=== PATIENT | female | born 1960 | race Caucasian/White ===

== ENCOUNTER 2018-11-02 11:31 | Inpatient (IN) ==
[2018-11-02] MEDS ORDERED: GAMUNEX C IV ONE (13:00)
[2018-11-02] MEDS ORDERED: DILUENT IV ONE (13:00)
[2018-11-02] MEDS ORDERED: GRANIX SUBQ ONE (15:10)
--- NOTE | 2018-11-02 15:31 | Diag Imaging Result Doc PS360 ---
EXAM: CHEST-PORTABLE INDICATION: pna TECHNIQUE: One view COMPARISON: 12/19/2013 FINDINGS: The right chest port is in stable position. The lungs are grossly clear. There is no discrete pleural fluid collection or pneumothorax. The cardiomediastinal silhouette and central vasculature are grossly unremarkable. IMPRESSION: No evidence of acute pathology by plain radiograph. Electronically signed by John Faulkner 11/02/2018 3:28 PM
[2018-11-02 15:51] LABS: BASO# 0.01 X1000 (0.0-0.2); BASO% 0.6 % (0.0-0.8); EOS# 0.19 X1000 (0.0-0.7); HEMATOCRIT 36.9 % (37.0-47.0); HEMOGLOBIN 12.2 g/dL (12.0-16.0); LYMPH# 0.49 X1000 (1.2-3.4); LYMPH% 28.3 % (20.5-51.1); MCH 29.5 PG (27-31); MCHC 33.1 g/dL (33-37); MCV 89.1 FL (81-99); MONO# 0.36 X1000 (0.11-0.59); MONO% 20.8 % (1.7-9.3); NEUT# 0.68 X1000 (1.4-6.5); NEUT% 39.3 % (42.2-75.2); PLT 56 X1000 (130-400); RBC 4.14 XMIL (4.2-5.4); WBC 1.73 X1000 (4.8-10.8)
[2018-11-02 16:01] LABS: AGAP 11; ALB/GLOB RATIO 1.2; ALBUMIN 3.7 g/dL (3.5-5.0); ALKALINE PHOSPHATASE 69 U/L (32-104); BUN 21 mg/dL (8-22); CALCIUM 9.5 mg/dL (8.8-10.2); CHLORIDE 97 mmol/L (98-107); CK PROFILE 140 U/L (24-173); COSMO 279; CREATININE 0.7 mg/dL (0.5-0.9); ESTIMATED GFR > 60; GLUCOSE 104 mg/dL (70-104); GOT 12 U/L (10-30); GPT 8 U/L (10-36); MAGNESIUM 1.8 mg/dL (1.5-2.7); POTASSIUM 3.5 mmol/L (3.5-5.1); SODIUM 138 mmol/L (136-145); TCO2 30 mmol/L (25-35); TOTAL BILIRUBIN 0.44 mg/dL (0.20-1.00); TOTAL PROTEIN 6.8 g/dL (6.3-8.3)
[2018-11-02 16:10] LABS: FREE T4 1.54 ng/dL (0.93-1.70); INR 0.96; PROTIME 13.6 Seconds (11.0-16.0); TSH 1.49 uIUmL (0.27-4.20)
[2018-11-02 16:37] LABS: BANDS 4 % (0-1); EOS 6 % (1-10); LYMPHS 33 % (21-51); MONO 10 % (1-9); SEGS 41 % (42-75)
[2018-11-02] MEDS ORDERED: DUONEB (A & A) INH PRN (17:29)
[2018-11-02] MEDS ORDERED: NS 1,000 ML IV ONE (17:30)
[2018-11-02] MEDS ORDERED: ZYVOX 600 MG/D5W 600 MG/300 ML IVPB IV SCH (18:30)
[2018-11-02] MEDS: MAXIPIME 2 GM in NS 100 ML IV SCH (19:52)
[2018-11-02] MEDS: DUONEB (A & A) INH SCH ×2 (20:00→23:40)
--- NOTE | 2018-11-02 20:08 | Diag Imaging Result Doc PS360 ---
EXAM: CT MAXILLOFACIAL(SINUS) W/O CO INDICATION: sinusitis TECHNIQUE: COMPARISON: None. FINDINGS: There is extensive paranasal sinus mucosal disease with subtotal opacification of the ethmoid sinuses, sphenoid sinuses, and right maxillary sinus. There is significant mucosal thickening involving the left maxillary sinus as well. The right frontal sinuses are not pneumatized. The small left frontal sinus is clear. Both ostiomeatal units are obstructed by the mucosal thickening. There appear to be air-fluid levels in the maxillary sinuses. The mastoid air cells are clear. The surrounding bony structures are grossly patent. IMPRESSION: Extensive paranasal sinusitis as described, likely a combination of acute and chronic. Electronically signed by John Faulkner 11/02/2018 8:06 PM
--- NOTE | 2018-11-02 20:17 | HISTORY AND PHYSICAL ---
ONCOLOGIST: Dr. John Diaz. CHIEF COMPLAINT: Fever, cough, malaise. HISTORY OF PRESENT ILLNESS: Ms. Germain is a 57-year-old female with a known history of multiple myeloma followed by Dr. Diaz. She has been having multiple days of wheezing, coughing, low-grade fever and malaise. She initially went to a walk-in clinic on Wednesday and was prescribed antibiotics; however, her symptoms did not improve. She had a followup with Dr. Diaz today for standard post-2-week chemotherapy labs. He listened to her lungs and felt she needed inpatient evaluation for probable pneumonia. She has also been complaining of some diarrhea, which is unusual for her. She has had about 4-8 stools a day. She denies any abdominal pain, however. Labs have been obtained, and she does have some leukopenia and thrombocytopenia. Otherwise, her chemistry is unremarkable. Chest x-ray is unremarkable as well; however, on physical exam she does have significant rales. Given the above, we will admit her for further treatment and evaluation. PAST MEDICAL HISTORY: 1. Multiple myeloma, followed by Dr. Diaz. 2. History of endometrial cancer status post hysterectomy. 3. Hypertension. SOCIAL HISTORY: No tobacco, alcohol or drug use. SURGICAL HISTORY: 1. Hysterectomy. 2. Port placement. FAMILY HISTORY: Noncontributory. REVIEW OF SYSTEMS: A 14-point review of systems was obtained and found to be negative with the exception of the HPI. HOME MEDICATIONS: 1. Metoprolol succinate 100 mg p.o. at bedtime. 2. Levaquin 500 mg daily. 3. She recently finished a study where she was on Eliquis, but this was completed last week. 4. She takes a baby aspirin daily. 5. Valacyclovir. ALLERGIES: Vancomycin. PHYSICAL EXAMINATION: VITAL SIGNS: Blood pressure 121/69, heart rate 88, respiratory rate 18, O2 saturation 93% on room air, temperature 97.5. GENERAL: Obese female lying in hospital bed in no acute distress. NEUROLOGICAL: Awake, alert and oriented. Follows commands. No focal deficits. HEENT: Head is atraumatic, normocephalic. Pupils equal, round, and reactive to light. Oral mucosa is dry. NECK: Trachea is midline. There is no JVD. CHEST: Bibasilar crackles and rales. CV: Regular rate and rhythm. S1 and S2 noted. No murmurs. GI: Soft, nondistended, nontender. Bowel sounds positive . EXTREMITIES: Without edema. Pulses 1+ bilaterally. DIAGNOSTIC DATA: Chest x-ray shows no evidence of acute pathology. WBCs 1.73, hemoglobin 12.2, hematocrit 36.9, platelet count 56. INR 0.96. Chemistry is unremarkable. ASSESSMENT/PLAN: 1. Presumed community-acquired pneumonia in the setting of altered immunity: Will start the patient on cefepime and Zyvox, check a thorax CT, add breathing treatments, aggressive pulmonary toilet, and follow culture data. 2. Diarrhea: Given her recent use of antibiotics, will check stool studies to ensure there is no Clostridium difficile or other pathologic growth. 3. Hypertension. Continue home medications. 4. Leukopenia and thrombocytopenia: Dr. Diaz is following and has added Granix subcutaneously. Will follow her CBC daily. 5. Multiple myeloma. Aware. Dr. Diaz is managing. 6. Deep venous thrombosis prophylaxis with sequential compression devices and thromboembolic deterrents. 7. Further recommendations to follow. Dictated by JUANA Park for Gavino Nascimento MD cc: JUANA Park MD I have seen and examined Ms Germain today. She presented cough, nasal congestion and subjective fever I have reviewed her labs and imaging studies. She is immunocompromised, Multiple myeloma, neutropenic fever and pneumonia. I agree with the above HPI and the plan reflects my opinion discussed with the MEDICAL NUMERICAL CONTROL OPERATOR. EVE
--- NOTE | 2018-11-02 20:17 | Diag Imaging Result Doc PS360 ---
EXAM: CT THORAX W/O CONTRAST INDICATION: pna TECHNIQUE: This exam was performed using automated exposure control, adjustment of mA or kV according to patient size, and/or use of iterative reconstruction technique. COMPARISON: 05/07/2018 FINDINGS: There are patchy airspace infiltrates involving all of the pulmonary lobes bilaterally but more extensive at the lower lung zones, especially on the left. There is no pleural fluid collection and no pneumothorax. There are small shotty mediastinal and hilar lymph nodes that are similar to the previous study. No new lymphadenopathy is appreciated. There is no cardiomegaly. There are innumerable lytic lesions throughout the visualized skeleton similar to the previous study consistent with known multiple myeloma. IMPRESSION: 1.Multilobar patchy pneumonia bilaterally. 2.Innumerable lytic lesions throughout the visualized skeleton similar to the previous study consistent with known multiple myeloma. Electronically signed by John Faulkner 11/02/2018 8:14 PM
[2018-11-02] MEDS: TYLENOL PO PRN (21:30)
[2018-11-02] MEDS: TOPROL XL PO SCH (21:30)
[2018-11-02] MEDS: CIPRODEX OTIC SUSPENSION SCH (21:32)
[2018-11-03] MEDS: DUONEB (A & A) INH SCH ×6 (03:20→23:35)
--- NOTE | 2018-11-03 04:01 | INFECTIOUS DISEASE CONSULT REP ---
DATE: 11/02/2018 CONCLUSION: The patient was admitted to the hospital, she has neutropenia. On exam she appears to have both otitis externa and otitis media. She also may have sinusitis. The patient has diarrhea and this could be due to an infectious cause such as Clostridium difficile. The patient may have a pneumonia that does not yet show up on x-ray due to the fact that the patient is neutropenic and also the chest x-ray often times lags behind the clinical nature of the patient, and thus she could have pneumonia but it is not showing up yet on the chest x-ray. RECOMMENDATIONS: I agree with treating the patient with cefepime. I have discontinued Zyvox because of the patient's low white count. I have also ordered Cipro ear drops and I have ordered a CT scan of the sinuses. DISCUSSION: The patient tells me that for the past 4 days she has had a cough and some shortness of breath, she also has had fever. She produces sputum that had both yellow discoloration and blood in it. Laboratory studies thus far show a CBC with a white count of 1730, hemoglobin 12.2, platelet count 56,000 creatinine is 0.7. GFR is greater than 60. Liver function studies are normal. Blood cultures are pending. Chest x-ray is clear. The patient has had cough and shortness of breath for 4 days. She also has had fever. She has been producing sputum that is yellow and also has blood in it. She has also been complaining of diarrhea. The patient is having some chest pain but it is mainly pleuritic in nature. FIRER DIESEL LOCOMOTIVE HISTORY: She is a 3, para 3, AB0. She has had a hysterectomy. PAST MEDICAL HISTORY/REVIEW OF SYSTEMS: Eyes/Ears: The patient has decreased hearing. Her vision is okay. Neck: No stiffness. Respiratory: See present illness. Cardiac: The patient does have chest pain but it is pleuritic in nature. Genitourinary: No dysuria or flank pain. Gastrointestinal: See present illness. Bones/Joints/Muscles: No swollen joints or muscle aching. PREVIOUS HOSPITALIZATIONS/OPERATIONS: She has had 3 labor and deliveries, a hysterectomy, an admission for pneumonia. She has had 2 stem-cell transplants for multiple myeloma. She has had 2 spinal procedures, 1 of which was a kyphoplasty. MEDICAL DISEASES: Positive for hypertension, multiple myeloma, and low immunoglobulin levels. INFECTIOUS DISEASE HISTORY: Positive for pneumonia, urinary tract infection, and shingles. A bladder infection caused the patient to have loss of hearing. FAMILY HISTORY: Positive for cancer and parkinsonism. SOCIAL HISTORY: The patient lives in [place]. She is . She has a dog as a pet. She does not smoke cigarettes, drink alcoholic beverages, or abuse drugs. PHYSICAL EXAMINATION: Vital Signs: Temperature is 97.5 degrees, pulse 88, respirations 18, blood pressure 121/69. The patient is 4 feet 11 inches tall, weighs 204 pounds. General: This is an obese middle-aged female. She is in no acute distress. Head/eyes/ears/nose/throat: She can hear my spoken words and see near objects. Her sinuses were not tender. On otoscopic examination the patient had some erythema on both of her ear canals, and on the left ear there was erythema on the tympanic membrane. Neck: No meningismus. Lungs: Clear to auscultation. Cardiovascular: Heart rate is regular. Abdomen: Soft and nontender. Neurologic: The patient is alert. She can move her extremities. There is no tremor. Her sensation is intact to touch. Integument: No rash noted. Thank you for the consult. cc: Mekhi Markham MD
[2018-11-03] MEDS: MAXIPIME 2 GM in NS 100 ML IV SCH (04:59)
[2018-11-03 06:59] LABS: BASO# 0.01 X1000 (0.0-0.2); BASO% 0.5 % (0.0-0.8); EOS% 4.8 % (0.0-10.0); HEMATOCRIT 32.4 % (37.0-47.0); HEMOGLOBIN 10.6 g/dL (12.0-16.0); IMM GRAN% 4.8 % (0.0-0.5); LYMPH# 0.52 X1000 (1.2-3.4); LYMPH% 24.8 % (20.5-51.1); MCH 29.4 PG (27-31); MCHC 32.7 g/dL (33-37); MCV 89.8 FL (81-99); MONO# 0.52 X1000 (0.11-0.59); MONO% 24.8 % (1.7-9.3); MPV 11.9 FL (7.4-10.4); NEUT# 0.85 X1000 (1.4-6.5); NEUT% 40.3 % (42.2-75.2); PLT 50 X1000 (130-400); RBC 3.61 XMIL (4.2-5.4); RDW 13.2 % (11.5-14.5)
[2018-11-03 07:25] LABS: LYMPHS 24 % (21-51); MONO 38 % (1-9); SEGS 38 % (42-75)
[2018-11-03] MEDS: TYLENOL PO PRN ×2 (08:20→21:34)
[2018-11-03] MEDS: CIPRODEX OTIC SUSPENSION SCH ×2 (08:21→21:36)
[2018-11-03 08:45] LABS: IRON SATURATION 25 %; TIBC 202 ug/dL; TOTAL IRON 50 ug/dL (49-151); UNBOUND IRON 152 ug/dL (112-346)
--- NOTE | 2018-11-03 08:48 | HEMO/ONC CONSULTATION ---
DATE: 11/03/2018 CHIEF COMPLAINT: We are being consulted for the management of patient's multiple myeloma. HISTORY OF PRESENT ILLNESS: Ms. Germain is a pleasant 57-year-old female that has been complaining of approximately 4 to 5 days of increased shortness of breath, wheezing, coughing, low-grade fever, malaise. The patient did go to a walk-in clinic on Wednesday, where she was given some antibiotics and symptoms continued to get worse. The patient followed up in the clinic yesterday with increasing complaints, and was sent to the hospital at that time to be admitted for further evaluation and treatment for pneumonia. The patient has also been having some increasing diarrhea. Patient denied any nausea and vomiting. No abdominal pain. No clinical signs of bleeding. The patient is well known to us in clinic, where she follows up for multiple myeloma. In August 12, 2012, the patient was started on Doxil, Velcade, and Decadron, and completed in November 21, 2012. Was followed up on January 16, 2013, she had an autologous stem-cell transplantation and then on 06/27/2013, the patient had a tandem autotransplant, and Revlimid was stopped at that time. On 02/28/2014, patient was started on maintenance Velcade and then 2 years later, in 01/15/2015, Velcade was stopped. On 02/04/2015 due to progression of disease, patient was started on Cytoxan, Velcade, and Decadron. The patient was switched to Darzalex on 09/27/2017. Pomalyst was added on 04/26/2018 due to an M spike of 1.1 g/dL. The patient also has a history of hypogammaglobulinemia, where she was receiving Octagam every 4 weeks and due to her IgG levels increasing, it was stopped, which she received her last dose on February 02, 2017. PAST MEDICAL HISTORY: 1. Multiple myeloma. 2. History of endometrial cancer status post hysterectomy. 3. Hypertension. 4. Stem cell transplant x2. SURGICAL HISTORY: Hysterectomy and port placement. SOCIAL HISTORY: Denies any tobacco, alcohol, or illicit drug use. FAMILY HISTORY: Noncontributory. HOME MEDICATIONS: Metoprolol succinate, Levaquin, Valaciclovir, aspirin 81 mg. ALLERGIES: Vancomycin. REVIEW OF SYSTEMS: Negative, other than as mentioned in HPI. PHYSICAL EXAM: Vital Signs: Temperature 97.5 degrees, heart rate 79, respiratory rate 19, blood pressure is 112/45, saturation 98% on room air. General: Patient is awake, lying in bed, in no acute distress noted. HEENT: Anicteric. Pupils PERRLA. Mucous membranes moist. Neck: Supple. Trachea is midline. No JVD. Lymph node survey: No palpable lymphadenopathy. Chest: Bilateral breath sounds with crackles bilaterally with an expiratory wheeze. Cardiovascular: Normal S1, S2. Regular rate and rhythm. Abdomen: Soft, nontender, and nondistended. Bowel sounds present all 4 quadrants. Skin: Warm, dry, and intact. No petechiae. No clubbing, no rashes, no cyanosis. Neurologic: Alert and oriented x3. No focal deficits noted. LABORATORY DATA: White blood cell count is 2.1, hemoglobin 10.6, hematocrit 32.4, platelets are 50. Potassium 3.5, BUN 21, creatinine 0.7. RADIOLOGY RESULTS: Chest CT showed multilevel for patchy pneumonia bilaterally and there were lytic lesions throughout the visualized skeleton similar to previous study, consistent with her known multiple myeloma. Maxillofacial CT shows extensive paranasal sinusitis as likely a combination of acute on chronic. ASSESSMENT AND PLAN: 1. Multiple myeloma. The patient currently on Darzalex and Pomalyst, 3 weeks on and 1 week off. Her last dose of Pomalyst was on 10/18/2018, as well as the last Darzalex. The patient is also on Xgeva, where she receives it every 28 weeks, and her last dose was on 10/18/2018. Continue to monitor at this time. Once patient is discharged and back to baseline, we will consider restarting treatment at that time. 2. Pneumonia: Continue antibiotics as ordered by Infectious Disease. Continue with breathing treatments as ordered. Continue to monitor. 3. Leukopenia: White blood cell count did slightly increased after receiving 1 dose of Granix yesterday. Today, white blood cell count was 3.1. ANC is up to 850. The patient will receive another dose of Granix today. 4. Thrombocytopenia. Today, platelet counts are 50,000, this is caused by bone marrow suppression with her treatment and infectious process. Continue to monitor closely. Transfuse if platelets drop less than 20,000 or for any clinical signs of bleeding. Continue to monitor closely. 5. Anemia: This is caused by her immune bone marrow suppression from her chemotherapy as well as her infectious process at this time. We will get an anemia profile as well just to check. Continue to monitor closely. Transfuse as needed. 6. Deep venous thrombosis prophylaxis: Continue sequential compression device. Continue patient to get up as much as possible. 7. Diarrhea: Negative for Clostridium difficile. Most likely caused by her Darzalex and Pomalyst. Continue to monitor. 8. Hypertension. Continue home medications as ordered. Dictated by JUANA Overton for John Diaz MD Patient seen and examined. As above. For the time being we will hold Pomalyst. Continue antibiotics for pneumonia. We will give a dose of IVIG due to hypogammaglobulinemia. Cytopenia due to chemotherapy. Support with Neupogen until ANC greater than 1000. Transfuse as needed. Compression stockings and SCDs for DVT prophylaxis. Lovenox once her platelet started trend up. Discussed with . John Diaz M.D. cc: JUANA Overton MD [facility]
[2018-11-03 09:04] LABS: FERRITIN 334 ng/mL (13-150)
[2018-11-03] MEDS ORDERED: GRANIX SUBQ SCH (09:30)
--- NOTE | 2018-11-03 11:09 | PROGRESS NOTE ---
DATE: 11/03/2018 SUBJECTIVE: This morning Ms. Germain refers to be doing fairly okay, but she says she is feeling very stuffy in the nose and slightly sweaty. Unsure if she is running any temperature. However, this morning her temperature was normal. OBJECTIVE: Vital signs: Blood pressure is 112/45, pulse is 79, respirations 19 and temperature 97.5 degrees. The patient was saturating 98 on room air. General exam: Ms. Germain is 57-year- old female. She was sitting up in the bed. She was not in any cardiopulmonary distress. HEENT: Mucosa is pink and moist. Anicteric. Acyanotic. Neck: Supple. I did not see any JVD. Respiratory system: Air entry was bilaterally reduced. There are diffuse posterior crepitations and inspiration. Abdomen: Soft, nontender. Bowel sounds present. Extremities: No pedal edema. WINDOW SHADE INSTALLER: Patient is awake, alert, oriented. There is no focal neurological deficit. LABORATORY DATA: WBC is 2.10, hemoglobin is 10.6, platelet count of 50. Chemistry is also reviewed. DIAGNOSTIC STUDIES: A chest x-ray which was done yesterday shows no evidence of acute pathology. A CT did show multilobar patchy pneumonia bilateral. There are also innumerable lytic lesions throughout the visualized skeletals. A CT of the maxillary facial showed extensive paranasal sinusitis, likely combination of acute and chronic. CURRENT MEDICATIONS: The patient's current medications have also been reviewed. She is on cefepime 2 g q. 12 hours. She is also getting Cipro. HOME MEDICATIONS: Home medications include: 1. Metoprolol 100 mg daily. ASSESSMENT: 1. Neutropenic fever at home, stable. So far, blood cultures have not shown anything. We think the source is coming from the lungs and the sinuses. The patient's white cell count seems to go up. Absolute neutrophil count has improved from 778 yesterday to 798. The patient continues to be remarkably neutropenic. 2. Pansinusitis. We will continue with the current antibiotic coverage and have added Zyrtec for decongestion purposes. 3. Multilobar pneumonia. The patient is currently on cefepime. I think she would benefit from methicillin-resistant Staphylococcus aureus coverage. I will wait on Infectious Disease to evaluate her today and then make a decision in that regard. 4. History of multiple myeloma. Patient follows up with Dr. Diaz. She is currently on monthly Darzalex and oral Pomalyst. 5. Immunocompromised secondary to underlying malignancy and chemotherapy. The patient has been has been infused immunoglobulin. PLAN: So, in general, Ms. Germain is a complicated case of multiple myeloma, who has had at least 2 bone marrow transplants. She is currently on immunotherapy with Dr. Diaz, who presented because of neutropenic fever. Sources seems to be both pansinusitis and pneumonia. The patient is currently on antibiotics. Cultures are still pending, but she seems to be fairly stable. I have discussed this case with Dr. Diaz and her oncologist today. cc: Gavino Nascimento MD
--- NOTE | 2018-11-03 11:32 | INFECTIOUS DISEASE PROGRESS NO ---
DATE: 11/03/2018 PRESENT ILLNESS: Ms. Germain has bilateral multilobar pneumonia, acute on chronic extensive paranasal sinusitis, and pancytopenia related to multiple myeloma. The patient has a history of immunoglobulin deficiency. MEDICATIONS: She is on day 1 of cefepime 2 g IV every 12 hours and Cipro otic suspension twice daily. The patient has received a dose of IVIG yesterday. PHYSICAL EXAMINATION: Vital Signs: Temperature is 97.5 degrees, pulse rate 83 , respiratory rate 20, blood pressure 112/45, O2 saturation is 93% on room air. General: This is a fairly healthy- appearing, middle-aged female. She is standing at the bedside in no acute distress. HEENT: Atraumatic, normocephalic. Oral mucous membranes are pink and moist. Conjunctivae are pale. Neck: Supple. Trachea is midline. Cardiovascular: Heart rate is regular. Pedal and radial pulses are palpable bilaterally. Lower extremity edema noted. Respiratory: Lung sounds have scattered rales bilaterally. Abdomen: Soft, round, and nontender. Bowel sounds are active. She states her diarrhea is improving. Integumentary: Skin is warm, dry and intact. Neurologic: She is awake, alert, and oriented. Stable on her feet. LABORATORY AND X-RAY: Today her white count is 2.1, hemoglobin 10.6, platelet count 50,000. Absolute neutrophil count is 850. Blood cultures are pending. Stool for C difficile toxin and antigen were both negative. No imaging reports today. However, the maxillofacial CT scan done last night shows extensive paranasal sinusitis, likely a combination of acute and chronic. Chest CT last night showed multilobar, patchy pneumonia bilaterally. ASSESSMENT AND PLAN: Ms. Germain has multilobar pneumonia bilaterally and extensive paranasal sinusitis. There is also an underlying pancytopenia. At this point, we will discontinue her cefepime and start her on aztreonam 2 g IV every 8 hours and ceftaroline 600 mg IV every 12 hours. She is also complaining of nasal stuffiness requiring her to mouth breathe. We will start her on Flonase nasal spray twice a day. These plans have been discussed with and recommended by Dr. Markham. COMORBIDITIES: Comorbidities for Ms. Germain include multiple myeloma and history of low immunoglobulin levels. Dictated by JUANA Kilpatrick for Mekhi Markham MD This chart was documented by, JUANA Kilpatrick and accurately reflects the services performed, treatment plan and medical decisions as attested by the providers signature Mekhi Markham MD. cc: Mekhi Markham MD [facility]
[2018-11-03] MEDS: FLONASE NAS SCH (11:49)
[2018-11-03] MEDS: ZYRTEC PO SCH (11:49)
[2018-11-03] MEDS: AZACTAM 2 GM in NS 100 ML IV SCH ×2 (11:57→21:45)
[2018-11-03] MEDS: TEFLARO 600 MG in NS 250 ML IV SCH (12:56)
[2018-11-03] MEDS: TOPROL XL PO SCH (21:33)
[2018-11-04] MEDS: TEFLARO 600 MG in NS 250 ML IV SCH ×2 (01:45→13:39)
[2018-11-04] MEDS: FLONASE NAS SCH ×3 (01:52→20:04)
[2018-11-04] MEDS: DUONEB (A & A) INH SCH ×6 (03:55→23:54)
[2018-11-04] MEDS: AZACTAM 2 GM in NS 100 ML IV SCH ×3 (04:07→20:04)
[2018-11-04 07:14] LABS: BASO# 0.03 X1000 (0.0-0.2); BASO% 1.4 % (0.0-0.8); EOS# 0.13 X1000 (0.0-0.7); EOS% 5.9 % (0.0-10.0); HEMATOCRIT 31.9 % (37.0-47.0); HEMOGLOBIN 10.4 g/dL (12.0-16.0); IMM GRAN# 0.31 X1000 (0.0-0.04); IMM GRAN% 14.2 % (0.0-0.5); LYMPH# 0.55 X1000 (1.2-3.4); LYMPH% 25.1 % (20.5-51.1); MCH 29.2 PG (27-31); MCHC 32.6 g/dL (33-37); MCV 89.6 FL (81-99); MONO# 0.59 X1000 (0.11-0.59); MONO% 26.9 % (1.7-9.3); MPV 10.9 FL (7.4-10.4); NEUT# 0.58 X1000 (1.4-6.5); NEUT% 26.5 % (42.2-75.2); PLT 59 X1000 (130-400); RBC 3.56 XMIL (4.2-5.4); RDW 13.1 % (11.5-14.5); WBC 2.19 X1000 (4.8-10.8)
[2018-11-04 07:36] LABS: EOS 16 % (1-10); LYMPHS 32 % (21-51); MONO 16 % (1-9); SEGS 36 % (42-75)
[2018-11-04 07:43] LABS: AGAP 12; BUN 6 mg/dL (8-22); CALCIUM 8.3 mg/dL (8.8-10.2); CHLORIDE 105 mmol/L (98-107); COSMO 284; CREATININE 0.5 mg/dL (0.5-0.9); ESTIMATED GFR > 60; GLUCOSE 84 mg/dL (70-104); POTASSIUM 3.3 mmol/L (3.5-5.1); SODIUM 144 mmol/L (136-145); TCO2 27 mmol/L (25-35)
--- NOTE | 2018-11-04 08:21 | HEMO/ONC PROGRESS NOTE ---
DATE: 11/04/2018 SUBJECTIVE: Patient's shortness of breath continues to improve. The patient says overall she is slowly starting to feel better. OBJECTIVE: Vital Signs: Temperature 97.4 degrees, heart rate 72, respiratory rate 20, blood pressure is 141/48, satting 94% on room air. General: Patient is awake, lying in bed, no acute distress noted. HEENT: Anicteric pupils. PERRLA. Mucous membranes moist. Cardiovascular: Normal S1, S2. Regular rate and rhythm. Chest: Bilateral breath sounds with crackles bilaterally. Abdomen: Soft, nontender. Bowel sounds present all 4 quadrants. Neurologic: Alert and oriented x3. No focal deficits noted. LABORATORY DATA: White blood cell count is 2.19, hemoglobin 10.4, hematocrit of 31.9, platelets are 59. ANC is 580. Potassium 3.3. BUN 6, creatinine 0.5, calcium 8.3. ASSESSMENT AND PLAN: 1. Multiple myeloma: The patient is on Pomalyst and Darzalex with the last dose on 10/18/2018. Once patient was discharged back to baseline, we will restart treatment. Just continue to monitor at this time. 2. Pneumonia: Continue antibiotics as ordered by Infectious Disease. Continue with breathing treatments as ordered. 3. Leukopenia: White blood cell count continues to be low. The patient will continue to receive the Granix until Her ANC is greater than 1500. Continue to monitor closely. 4. Thrombocytopenia: Platelet count is slowly increasing; today they are 259, 000. Continue to monitor. Transfuse if platelets drop less than 20,000 for any clinical signs of bleeding. 5. Hypogammaglobinemia: Patient received IVIG on Wednesday. Continue to monitor. 5. Deep venous thrombosis prophylaxis: Continue sequential compression devices : Continue the patient to get out of bed as much as possible. Plan of care discussed with Dr. Diaz. Dictated by JUANA Overton for John Diaz MD cc: John Diaz MD [facility]
[2018-11-04] MEDS: ZYRTEC PO SCH (09:02)
[2018-11-04] MEDS: CIPRODEX OTIC SUSPENSION SCH ×2 (09:02→20:05)
--- NOTE | 2018-11-04 18:01 | PROGRESS NOTE ---
DATE: 11/04/2018 SUBJECTIVE: This morning, Ms. Germain refers to be doing a lot better. She was actually sitting up in a chair at the time of the encounter. OBJECTIVE: Vital signs: Blood pressure was 115/54, pulse of 75, respirations 20, temperature 98 degrees. General: Ms. Germain is a 57-year-old gender lady. She was sitting up in a chair. No distress, HEENT: Mucosa is pink and moist. Anicteric. Acyanotic. Neck: Supple. Chest: Good air entry bilateral. There are still some crepitations posteriorly in both lung morton. Cardiovascular: Regular rate and rhythm. No murmurs, no rubs, no gallops. Abdomen: Soft, nontender. Bowel sounds present. Extremities: No pedal edema. Central Nervous System: The patient was awake, alert, oriented. No focal neurological deficit. LABORATORY DATA: WBC is 2.19, hemoglobin is 10.4, platelet count of 59,000. ANC is 788.4. Chemistry is also reviewed and is unremarkable. No new imaging studies. ASSESSMENT: 1. Neutropenic fever at home. So far cultures have been negative including blood for 48 hours. 2. Pansinusitis. Patient is on antibiotic and Zyrtec. 3. Multilobar pneumonia. The patient is currently on aztreonam and ceftaroline. Infectious Disease is on board. 4. History of multiple myeloma. Patient follows up with Dr. Diaz. Currently on monthly dose of Darzalex and daily oral Pomalyst. 5. Immunocompromised state secondary to underlying malignancy and chemotherapy. The patient received immunoglobulin infusion. In general, I think Ms. Germain is doing fairly okay. ANC continues to be below 1000. She is still pancytopenic. We are going to continue with the current antibiotics and care and follow up with further recommendation from the subspecialties. cc: Gavino Nascimento MD
[2018-11-04] MEDS: TYLENOL PO PRN (20:05)
[2018-11-04] MEDS: TOPROL XL PO SCH (20:05)
--- NOTE | 2018-11-04 22:23 | INFECTIOUS DISEASE PROGRESS NO ---
DATE: 11/04/2018 PRESENT ILLNESS: The patient has bilateral multilobar pneumonia, extensive paranasal sinusitis, otitis media, and otitis externa. The patient also has history of an immunoglobulin deficiency. MEDICATIONS: The patient is on a combination of ceftaroline and aztreonam. PHYSICAL EXAMINATION: Vital Signs: Temperature is 98 degrees, pulse 75, respirations 20, blood pressure 115/54. General: This is an obese, middle-aged female. She is in no acute distress. Head, eyes, ears, nose, and throat: She can hear my spoken words and see near objects. She does not have any white patches on her tongue, and there are no ulcers in her mouth. Neck: No meningismus. Lungs: There were bibasilar rales. Cardiovascular: Heart rate is regular. Abdomen: Soft and nontender. Extremities: Both legs are edematous but not erythematous. Neurologic: The patient is alert. She can move her extremities. There is no tremor. LABORATORY AND X-RAY: CT scan of the sinuses showed extensive paranasal sinusitis. CT scan of the chest showed bilateral pneumonia. The CBC for today shows a white count of 2190, hemoglobin 10.4, and platelet count 59,000. Creatinine is 0.5, GFR is greater than 60. Stool for ova and parasites, culture and susceptibility, and Clostridium difficile antigen and toxin are all negative. ASSESSMENT AND PLAN: The patient has pancytopenia with an associated pneumonia and sinusitis as well as otitis media and otitis externa. My plan is to continue with aztreonam and ceftaroline. COMORBIDITIES: The patient has multiple myeloma. She also has a history of low immunoglobulin levels. Finally, she is pancytopenic. cc: Mekhi Markham MD
[2018-11-05] MEDS: TEFLARO 600 MG in NS 250 ML IV SCH ×2 (01:12→12:58)
[2018-11-05] MEDS: AZACTAM 2 GM in NS 100 ML IV SCH ×3 (03:15→20:09)
[2018-11-05] MEDS: DUONEB (A & A) INH SCH ×6 (04:30→23:22)
[2018-11-05 07:06] LABS: AGAP 8; BUN 6 mg/dL (8-22); CHLORIDE 104 mmol/L (98-107); COSMO 278; CREATININE 0.5 mg/dL (0.5-0.9); ESTIMATED GFR > 60; GLUCOSE 90 mg/dL (70-104); SODIUM 141 mmol/L (136-145); TCO2 29 mmol/L (25-35)
[2018-11-05 07:17] LABS: BASO# 0.05 X1000 (0.0-0.2); BASO% 1.9 % (0.0-0.8); EOS# 0.16 X1000 (0.0-0.7); HEMATOCRIT 31.2 % (37.0-47.0); HEMOGLOBIN 10.4 g/dL (12.0-16.0); IMM GRAN# 0.03 X1000 (0.0-0.04); IMM GRAN% 1.1 % (0.0-0.5); LYMPH# 0.69 X1000 (1.2-3.4); MCHC 33.3 g/dL (33-37); MCV 89.9 FL (81-99); MONO# 0.63 X1000 (0.11-0.59); MONO% 23.8 % (1.7-9.3); MPV 10.2 FL (7.4-10.4); NEUT# 1.09 X1000 (1.4-6.5); NEUT% 41.2 % (42.2-75.2); PLT 70 X1000 (130-400); RBC 3.47 XMIL (4.2-5.4); RDW 13.4 % (11.5-14.5); WBC 2.65 X1000 (4.8-10.8)
[2018-11-05 07:28] LABS: BASO 8 % (0-1); EOS 6 % (1-10); LYMPHS 36 % (21-51); MONO 16 % (1-9); SEGS 34 % (42-75)
[2018-11-05] MEDS: ZYRTEC PO SCH (11:37)
[2018-11-05] MEDS: CIPRODEX OTIC SUSPENSION SCH ×2 (11:38→20:10)
[2018-11-05] MEDS: FLONASE NAS SCH ×2 (11:38→20:10)
[2018-11-05] MEDS: GRANIX SUBQ SCH (11:39)
--- NOTE | 2018-11-05 15:29 | PROGRESS NOTE ---
DATE: 11/05/2018 SUBJECTIVE: This morning Ms. Germain refers to be doing fairly okay. Still has some residual cough, but she said her congestion for most part is remarkably improved. OBJECTIVE: Vital Signs: Blood pressure is 138/72, pulse is 72, respirations 20 , temperature 97.8. General: Ms. Germain is a 57-year-old female. She is in bed, no distress. HEENT: Mucosa is pink and moist. Anicteric. Acyanotic. Neck: Supple. Respiratory: Good air entry bilaterally. There are still crepitations posteriorly in both lungs. Cardiovascular: Regular rate and rhythm. No murmurs, no rubs, no gallops. Gastrointestinal: Abdomen is soft, nontender. Bowel sounds present. Extremities: No pedal edema. Distal pulses are present. Central Nervous System: Patient is awake, alert and oriented. There is no focal neurological deficit. LABORATORY DATA: WBC is 2.65, hemoglobin is 10.4, platelet count of 70,000. The patient's ANC is 901. Chemistry is also reviewed. Potassium is 3.0. Rest of chemistry is unremarkable. ASSESSMENT: 1. Neutropenic fever at home. Culture so far negative. 2. Pansinusitis. Patient is currently on ceftaroline and aztreonam and Zyrtec. 3. Multilobe pneumonia. We will continue with the current antibiotic coverage. Infectious Disease is on board. 4. History of multiple myeloma. Patient follows up with Dr. Diaz. The patient is currently on monthly dose of Darzalex and daily oral Pomalyst These have been withheld during the acute illness. 5. Immunocompromised state secondary to underlying malignancy and chemotherapy. 6. Diarrhea. I think this is probably due to the side effects of the current antibiotics. We will, however, do a C difficile to rule out any possible superimposed infection. cc: Gavino Nascimento MD MTDD
[2018-11-05] MEDS: TYLENOL PO PRN (20:09)
[2018-11-05] MEDS: TOPROL XL PO SCH (20:09)
[2018-11-06] MEDS: TEFLARO 600 MG in NS 250 ML IV SCH ×2 (01:08→12:59)
[2018-11-06] MEDS: DUONEB (A & A) INH SCH ×6 (03:20→23:01)
[2018-11-06] MEDS: AZACTAM 2 GM in NS 100 ML IV SCH ×3 (03:36→22:05)
[2018-11-06] MEDS: TYLENOL PO PRN ×2 (06:44→19:57)
[2018-11-06 07:37] LABS: AGAP 9; BUN 5 mg/dL (8-22); CALCIUM 7.7 mg/dL (8.8-10.2); CHLORIDE 105 mmol/L (98-107); COSMO 282; CREATININE 0.6 mg/dL (0.5-0.9); ESTIMATED GFR > 60; GLUCOSE 88 mg/dL (70-104); POTASSIUM 3.2 mmol/L (3.5-5.1); SODIUM 143 mmol/L (136-145); TCO2 29 mmol/L (25-35)
[2018-11-06] MEDS: GRANIX SUBQ SCH (11:10)
[2018-11-06] MEDS: FLONASE NAS SCH ×2 (11:12→22:06)
[2018-11-06] MEDS: CIPRODEX OTIC SUSPENSION SCH ×2 (11:14→22:06)
[2018-11-06] MEDS: ZYRTEC PO SCH (11:15)
--- NOTE | 2018-11-06 14:33 | PROGRESS NOTE ---
DATE: 11/06/2018 SUBJECTIVE: This morning Ms. Germain refers to be doing fairly okay. Denies any fever and no shortness of breath. She still has some nasal congestion and baseline cough but no expectoration. OBJECTIVE: Vitals: Her blood pressure is 133/77, pulse is 71, respiration is 20, temperature 98 degrees, patient was saturating 98% on room air. General: Ms. Germain 57-year- old female she was in bed no distress. Mucosa is pink and moist. Anicteric. Acyanotic. Neck: Supple. Respiratory: There is good air entry bilateral. There are still some posterior crackles in the inferior lung morton. Cardiovascular: Regular rate and rhythm. No murmurs, no rubs, no gallop. Abdomen: Soft, nontender. Bowel sounds present. Extremities: No pedal edema. Distal pulses present. 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 No focal neurological deficit. LABORATORY DATA: Chemistry is reviewed. Potassium is 3.2, will continue to replace this . So far the blood cultures have been 48 hours negative. Stool cultures have all been negative. CURRENT MEDICATIONS: Have also been reviewed. She is on aztreonam 2 g every 8 hours today is day 3 on that, ceftaroline 600 q.12 today is day 3. ASSESSMENT: 1. Neutropenic fever. Cultures negative so far. Numbers are getting slowly better. 2.Pansinusitis. Patient is on Zyrtec and IV antibiotics. 3. Multilobar pneumonia. Will continue with aztreonam and ceftaroline. Infectious Disease is on board. 4. History of multiple myeloma. Patient follows up with Dr. Diaz. He is currently on monthly dose of Darzalex and daily oral Pulmo-Mist. 5. Immunocompromised state secondary to underlying malignancy and chemotherapy. 6. Diarrhea improved, so far stool cultures have been negative. We think is probably related to chemotherapy side effects. So in general Ms. Germain is doing fairly okay. Respiratory symptoms are getting better. We going to continue with the current antibiotic coverage. We will repeat her labs for tomorrow morning and go from there. She has been afebrile since the hospital course. cc: MD EVE Crain
[2018-11-06] MEDS: TOPROL XL PO SCH (22:06)
[2018-11-06] MEDS ORDERED: NORCO-5 PO PRN (23:27)
[2018-11-07] MEDS: TEFLARO 600 MG in NS 250 ML IV SCH (01:01)
[2018-11-07] MEDS: DUONEB (A & A) INH SCH ×3 (02:47→11:37)
[2018-11-07] MEDS: AZACTAM 2 GM in NS 100 ML IV SCH (05:47)
[2018-11-07 06:48] LABS: BASO# 0.25 X1000 (0.0-0.2); BASO% 2.2 % (0.0-0.8); EOS# 0.24 X1000 (0.0-0.7); EOS% 2.2 % (0.0-10.0); HEMATOCRIT 33.2 % (37.0-47.0); HEMOGLOBIN 10.7 g/dL (12.0-16.0); IMM GRAN% 9.9 % (0.0-0.5); LYMPH# 1.29 X1000 (1.2-3.4); LYMPH% 11.6 % (20.5-51.1); MCH 29.2 PG (27-31); MCHC 32.2 g/dL (33-37); MCV 90.7 FL (81-99); MONO# 2.22 X1000 (0.11-0.59); MONO% 19.9 % (1.7-9.3); MPV 10.5 FL (7.4-10.4); NEUT# 6.06 X1000 (1.4-6.5); NEUT% 54.2 % (42.2-75.2); PLT 95 X1000 (130-400); RBC 3.66 XMIL (4.2-5.4); WBC 11.16 X1000 (4.8-10.8)
[2018-11-07 07:01] LABS: BANDS 4 % (0-1); BASO 6 % (0-1); EOS 2 % (1-10); LYMPHS 18 % (21-51); MONO 22 % (1-9); SEGS 48 % (42-75)
[2018-11-07 07:32] LABS: AGAP 10; BUN 7 mg/dL (8-22); CALCIUM 8.3 mg/dL (8.8-10.2); CHLORIDE 106 mmol/L (98-107); COSMO 285; CREATININE 0.6 mg/dL (0.5-0.9); ESTIMATED GFR > 60; GLUCOSE 95 mg/dL (70-104); POTASSIUM 3.3 mmol/L (3.5-5.1); SODIUM 144 mmol/L (136-145); TCO2 28 mmol/L (25-35)
[2018-11-07] MEDS: FLONASE NAS SCH (09:45)
[2018-11-07] MEDS: ZYRTEC PO SCH (09:45)
[2018-11-07] MEDS: CIPRODEX OTIC SUSPENSION SCH (09:46)
[2018-11-07] MEDS: GRANIX SUBQ SCH (09:47)
--- NOTE | 2018-11-07 10:31 | Diag Imaging Result Doc PS360 ---
EXAM: CHEST-2 VIEWS 11/07/2018 HISTORY: hypoxia TECHNIQUE: PA and lateral chest COMMENT: There is a Port-A-Cath on the right with its tip in the right atrium. There has been kyphoplasty at T4 and T5. The heart size and primary vascularity are within normal limits. There has been a compression fracture at the L1 and T11 levels. There is platelike atelectasis in the left lower lobe. Compared to 11/02/2018 considering differences in inspiration and technique there has been no significant change. Compared to the previous study of 12/19/2013 the atelectasis was not present however the compression fractures were present previously. IMPRESSION: Osteoporosis. Left lower lobe subsegmental atelectasis. Electronically signed by Spencer Ruffin 11/07/2018 10:29 AM
--- NOTE | 2018-11-07 10:35 | PROGRESS NOTE ---
DATE: 11/07/2018 SUBJECTIVE: This morning, Ms. Germain refers to be doing a whole lot better. Nasal congestion is improved, and coughing is getting better. OBJECTIVE: Vital signs: Blood pressure is 123/55, pulse is 71, respiration is 18, temperature is 98.3 degrees. Patient was saturating 95% on room air. General: Ms. Germain is a 57-year-old female. She was in bed, no distress. HEENT: Mucosa is pink and moist. Anicteric. Acyanotic. Neck: Was supple. There was no JVD. Chest: Good air entry bilateral. There are still some crackles in both posterior lung morton. Cardiovascular: Regular rate and rhythm. No murmurs, no rubs, no gallops. GI: Abdomen is soft, nontender. Bowel sounds were present. There was no hepatosplenomegaly. Extremities: No pedal edema. Distal pulses were present. 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 There is no focal neurological deficit. Face: Patient still has minimal tenderness on the maxillary sinuses. LABORATORY DATA: WBC is up to 11.16, hemoglobin is 10.7, platelet count of 95,000. ANC is now at 5000. CURRENT MEDICATIONS: Have also been reviewed. She is currently on aztreonam 2 g every 8 hours, ceftaroline 600 mg every 12 hours, Zyrtec 10 mg daily, ciprofloxacin eardrops, metoprolol 100 mg p.o. at bedtime. ASSESSMENT: 1. Neutropenic fever. Cultures negative. So far, the patient's absolute neutrophil count has gone up to 5000. Granix has been discontinued. 2. Pansinusitis. Patient is on intravenous antibiotics and p.o. Zyrtec. 3. Multilobar pneumonia. The patient is on aztreonam and ceftaroline. Today is day 4 on both antibiotics. Infectious Disease is on board. 4. History of multiple myeloma. Patient follows up with Dr. Diaz. She is currently on monthly dose of Darzalex and daily oral Pomalyst, which has been discontinued during the acute illness. 5. Immunocompromised state secondary to underlying malignancy and chemotherapy. 6. Diarrhea likely due to chemotherapy side-effects. So far, cultures are negative. Clostridium difficile was negative, and the patient is not having that anymore. PLAN: So, in general, I think Ms. Germain is a lot better. Her absolute neutrophil count is now over 5000. WBC has shot up to 11.16. Her Neupogen has been discontinued this morning by Heme- Onc. Today is day 4 on IV antibiotics. I am going to get a chest x-ray to see if there is improvement, so we are going to follow up with a chest x-ray this morning. If the x-rays are fine, think she would be okay to be discharged on oral antibiotics pending final recommendations from Dr. Markham. cc: Gavino Nascimento MD
[2018-11-07 11:42] VITALS: BP 127/59
--- NOTE | 2018-11-07 14:10 | INFECTIOUS DISEASE PROGRESS NO ---
DATE: 11/07/2018 PRESENT ILLNESS: The patient has bilateral multilobar pneumonia, extensive paranasal sinusitis, otitis media, and otitis externa. In addition, the patient has a history of an immunoglobulin deficiency. MEDICATIONS: Currently, the patient is receiving ceftaroline and aztreonam. PHYSICAL EXAMINATION: Vital Signs: Temperature is 98.2 degrees, pulse 71, respirations 18, blood pressure 129/59. General: This is an obese, middle-aged female. She is in no acute distress. Head/eyes/ears/nose/throat: She can hear my spoken words and see near objects. She does not have any drainage from her nose or ears. She does not have any white patches on her tongue. Neck: No stiffness. Lungs: Clear to auscultation. Cardiovascular: Regular heart rate. Abdomen: Soft and nontender. Extremities: There is edema in both legs but there is no erythema. Neurologic: Patient is alert. She can ambulate without difficulty. There is no tremor. LAB AND X-RAY: Chest x-ray, shows atelectatic areas in the lungs. [place] [address], hemoglobin 10.7, and platelet count 95,000. Creatinine is 0.6. GFR is greater than 60. ASSESSMENT AND PLAN: Patient has pneumonia and sinusitis. The pneumonia is not seen well on chest x-ray but on CT scan it is seen much better. My plan is to send the patient home on oral Ceftin and doxycycline and I have requested to see the patient back in my office in 2 weeks. The patient has an immunoglobulin deficiency which is being managed by Dr. Diaz. After examining the patient in my office, she will need to get a noncontrasted CT scan of the sinuses and the chest to better pick up driver, especially in the case of the lungs the infiltrates. COMORBIDITIES: Multiple myeloma, immunoglobulin deficiency, and pancytopenia. The CBC has recovered quite well. I will be seeing the patient back in my office in 2 weeks. cc: Mekhi Markham MD
--- NOTE | 2018-11-09 14:18 | DISCHARGE SUMMARY ---
ADMISSION DATE: 11/02/2018 DISCHARGE DATE: 11/07/2018 DISPOSITION: Home. FOLLOWUP: 1. Mekhi Markham MD 2. John Diaz MD CONSULTATIONS DURING THIS ADMISSION: 1. Oncology was consulted. The patient was seen by Dr. Diaz. 2. Infectious Disease was consulted. The patient was seen by Dr. Markham. INVASIVE PROCEDURES DONE DURING THIS ADMISSION: None. IMAGING STUDIES OF SIGNIFICANCE: 1. A chest x-ray was unremarkable. 2. A CT scan of the chest showed multilobar patchy pneumonia and innumerable lytic lesions throughout the visualized skeleton, similar to previous studies. 3. A maxillofacial CT scan showed extensive paranasal sinusitis, likely acute on chronic. 4. Subsequent chest x-ray showed left lower lobe subsegmental atelectasis. ADMISSION DIAGNOSES: 1. Presumed community-acquired pneumonia. 2. Diarrhea. 3. Leukopenia and thrombocytopenia. 4. Multiple myeloma. DISCHARGE DIAGNOSES: 1. Neutropenic fever with culture negative. 2. Pansinusitis. 3. Multilobar bilateral pneumonia. 4. History of multiple myeloma. 5. Immunocompromised state secondary to underlying malignancy and chemotherapy. 6. Diarrhea secondary to chemotherapy side effects, resolved. DISCHARGE MEDICATIONS: 1. Metoprolol 100 mg p.o. at bedtime. 2. Flonase 2 sprays b.i.d. 3. [place]. 4. Cetirizine 10 mg daily. 5. Ceftin and doxycycline as antibiotics, written by ID. PRESENTING COMPLAINT: Fever, malaise. HISTORY OF PRESENTING COMPLAINT: Ms. Germain is a 57-year-old female known to have multiple myeloma who follows up with Dr. Diaz, currently on monthly Darzalex and daily Pomalyst, who came to the emergency department because of on and off fever and cough. The patient went to her oncologist, who thought the patient was developing neutropenic fever so she was sent as a direct admission from Dr. Diaz's office. HOSPITAL COURSE: The patient was admitted to the medical floor under telemonitoring and was adequately hydrated. She was started on broad-spectrum antibiotics. Cultures were done. Initially, there did not seem to be any focalization. However, a CT scan of the chest did reveal multilobar bilateral pneumonia, and a CT scan of the paranasal sinuses also revealed sinusitis. Ms. Germain was also remarkably neutropenic and pancytopenic, and was started on Neupogen, to which she responded very well. WBC continues to improve. On the day of discharge it was over 10. She did not have any more fever during the hospital course and her diarrhea significantly improved. On the day of the discharge, she felt a lot better. Antibiotic was switched from IV to oral Ceftin and doxycycline, and Ms. Germain will follow up with Dr. Markham and Dr. Diaz. I did personally discuss the discharge plan with both subspecialties and with Ms Germain herself, and she was in agreement. She did voice understanding of the discharge recommendations. At the time of the discharge, there were no pending labs or imaging studies. Time spent for discharge was 36 minutes. cc: MD John Crain MD Leroy F. Harris, MD
== END 2018-11-07 16:41 | disposition home or self-care (01) | DRG 178 ==
LOC: SUATTDRO 11:31 → DIRADM 11:31 → 3N 11:45
PROVIDERS: ATTEND Internal Medicine
CPT/HCPCS: 70486; 71010; 71020; 71045; 71046; 71250; 80048; 80053; 82272; 82550; 82607; 82728; 82746; 83540; 83550; 83735; 84439; 84443; 85025; 85610; 87040; 87045; 87046; 87070; 87177; 87205; 87324; 87449; 88313; 89055; 94640; 94761; 94799; A9270; J0692; J0712; J1446; J1447; J1561; J7030; J7050; S0073

== ENCOUNTER 2019-10-03 14:16 | Observation (INO) ==
[2019-10-03 12:54] LABS: WBC 2.6 X1000 (4.8-10.8)
[2019-10-03 13:05] LABS: HEMATOCRIT 20.9 % (37.0-47.0); HEMOGLOBIN 6.7 g/dL (12.0-16.0); MCH 32.5 PG (27-31); MCHC 32.1 g/dL (33-37); MCV 101.5 FL (81-99); MPV 12.8 FL (7.4-10.4); RBC 2.06 XMIL (4.2-5.4); RDW 19.7 % (11.5-14.5)
--- NOTE | 2019-10-03 15:14 | Diag Imaging Result Doc PS360 ---
CHEST-1 VIEW - 10/03/2019 INDICATION: sob COMPARISON: 11/07/2018 FINDINGS: There is a stable right chest port in good position. Stable vertebroplasty changes in the upper thoracic spine. There is a questionable infiltrate in the medial left lower lobe. Heart size is normal. No pneumothorax or pleural effusion. IMPRESSION: Possible infiltrate/pneumonia in the medial left lower lobe. Electronically signed by Reg Dutta 10/03/2019 3:12 PM
[2019-10-03 15:47] LABS: INR 1.31; PROTIME 16.5 Seconds (11.0-16.0)
[2019-10-03 15:48] LABS: PTT 45.3 Seconds (22.3-41.8)
--- NOTE | 2019-10-03 15:50 | PROVIDER DOCUMENTATION ---
HPI-Screening - General Chief Complaint: Abnormal Lab[s] Stated Complaint: INFUSION/BLOOD NEEDED Time Seen by Provider: 10/03/19 15:11 Source: patient Allergies/Adverse Reactions: Allergies Allergy/AdvReac Type Severity Reaction Status Date / Time vancomycin Allergy RASH Verified 05/07/18 17:08 Home Medications: Home Medication List Medication Instructions Recorded Confirmed Last Taken Type Metoprolol Succinate 100 mg PO QHS 05/07/18 09/22/19 09/21/19 History Valacyclovir HCl [Valacyclovir] 500 mg PO QHS 05/07/18 09/22/19 09/21/19 History Gabapentin 100 mg PO BID 09/05/19 09/22/19 09/22/19 History Ibuprofen [Advil] 400 mg PO Q12H PRN PRN 09/05/19 09/22/19 09/22/19 History Morphine Sulfate [Morphine Sulfate 15 mg PO BID 09/05/19 09/22/19 09/05/19 History ER] HPI: 58yof presents to ED today after being referred by Dr. Diaz for a 2 unit transfusion of PRBCs due to anemia and thrombocytopenia related to active chemotherapy. She has labs showing a Hgb of 6. She c/o generalized weakness but denies SOB/BRBPR/Melena. Physical Exam-Screening - CONSTITUTIONAL General Appearance: appears well, alert, no apparent distress - EYES Eyes: PERRL/EOMI, other (pale conjunctiva) - HEAD, EARS, NOSE, MOUTH & THROAT HENMT: normocephalic/atraumatic, moist mucous membranes, normal ENT inspection - NECK Neck: full range of motion, normal inspection - RESPIRATORY Respiratory: chest non-tender, lungs clear, normal breath sounds, no pleuratic chest pain, no respiratory distress, no accessory muscle use - CARDIOVASCULAR Cardiovascular: normal peripheral pulses, regular rate, rhythm, no edema, no gallop, no JVD - GASTROINTESTINAL (ABDOMEN) Abdominal Exam: normal bowel sounds, non tender, soft, no organomegaly - LYMPHATIC Lymphatic: no adenopathy - MUSCULOSKELETAL Back Exam: normal inspection Extremity: normal range of motion, non-tender, normal gait, normal inspection - SKIN Integumentary: normal turgor, warm/dry, pallor - NEUROLOGIC Neurologic: dial polisher II-XII nml as tested, grossly normal, no motor/sensory deficits - PSYCHIATRIC Psych/Mental Status: normal mood/affect, normal thought content, normal thought process, oriented x 3 Screening Depart - Departure ED Screening Disposition: Continued in ED for Treatment Date of Disposition Decision: 10/03/19 DIAGNOSIS: Thrombocytopenia Anemia Qualifiers: Anemia type: unspecified type Qualified Code(s): D64.9 - Anemia, unspecified Condition: Stable Referrals and Follow-Ups: John Diaz MD [Primary Care Provider] - Attestation - Physician/ ZOHRA Attestation Patient care was provided by Advanced Practice Provider:: Yes Advanced Practice Provider:: Hafsa Rushing Advanced Practice Provider documentation review:: The Mid-level provider documentation, treatment plan and medical decision making was reviewed by the physician who agrees with all treatment and medical decision making by the MLP. The physician spent face to face time with patient:: Yes Advanced Practice Provider documentation review:: Supervising physician onsite and consulted in the evaluation and care of this patient. The physician did have a face to face encounter with the patient.
[2019-10-03 15:54] LABS: HEMATOCRIT 21.6 % (37.0-47.0); HEMOGLOBIN 6.7 g/dL (12.0-16.0); IMM GRAN# 0.02 X1000 (0.0-0.04); IMM GRAN% 0.9 % (0.0-0.5); LYMPH% 9.2 % (20.5-51.1); MCH 31.2 PG (27-31); MCV 100.5 FL (81-99); MONO# 0.25 X1000 (0.11-0.59); MONO% 11.5 % (1.7-9.3); NEUT% 78.4 % (42.2-75.2); RBC 2.15 XMIL (4.2-5.4); RDW 19.7 % (11.5-14.5); WBC 2.17 X1000 (4.8-10.8)
[2019-10-03 15:55] LABS: PLT 7 X1000 (130-400)
[2019-10-03 16:08] LABS: ALBUMIN 3.4 g/dL (3.5-5.0); CALCIUM 8.9 mg/dL (8.8-10.2); CREATININE 1.1 mg/dL (0.5-0.9); POTASSIUM 3.5 mmol/L (3.5-5.1); TOTAL BILIRUBIN 0.39 mg/dL (0.20-1.00); TOTAL PROTEIN 6.8 g/dL (6.3-8.3)
[2019-10-03 16:13] LABS: BANDS 4 % (0-1); LYMPHS 12 % (21-51); MONO 12 % (1-9); SEGS 72 % (42-75)
[2019-10-03 16:27] LABS: CK INDEX 0.7 (0.0-2.5); CK-MB 1.31 ng/mL (0.0-5.0)
--- NOTE | 2019-10-03 17:32 | EKG Report ---
Test Performed on : 10/03/2019 2:46:23 PM Test Reason : infusion Blood Pressure : / mmHG Vent. Rate : 094 BPM Atrial Rate : 094 BPM P-R Int : 126 ms QRS Dur : 080 ms QT Int : 372 ms P-R-T Axes : 037 006 012 degrees QTc Int : 465 ms Normal sinus rhythm. Nonspecific ST abnormality Abnormal ECG When compared with ECG of 11-AUG-2012 07:26, No significant change was found Unconfirmed Result
[2019-10-03] MEDS ORDERED: NS 500 ML IV ONE (18:03)
[2019-10-03] MEDS ORDERED: BENADRYL IV ONE (18:15)
[2019-10-03 18:21] LABS: URINE SOURCE CLEAN CATCH
[2019-10-03 18:24] LABS: BILIRUBIN URINE NEGATIVE (NEGATIVE); BLOOD URINE NEGATIVE (NEGATIVE); COLOR YELLOW; GLUCOSE URINE NEGATIVE (NEGATIVE); KETONE URINE TRACE mg/dL (NEGATIVE); LEUKOCYTES URINE NEGATIVE (NEGATIVE); NITRITE URINE NEGATIVE (NEGATIVE); PROTEIN URINE 100 mg/dL (NEGATIVE); SP GRAVITY URINE 1.032; TURBIDITY URINE HAZY (CLEAR); UR EPITHELIAL CELLS <10 /HPF (<10); URINE BACTERIA NEGATIVE /HPF; URINE RBC <10 /HPF (<10); URINE WBC 20-40 /HPF (<10); UROBILINOGEN URINE 2 mg/dL (NORMAL)
--- NOTE | 2019-10-03 18:40 | PROVIDER DOCUMENTATION ---
This chart was entered by Idalia Faulkner Scribe, acting as scribe for Adis Neff MD. HPI-General Adult - General Chief Complaint: Abnormal Lab[s] Stated Complaint: INFUSION/BLOOD NEEDED Time Seen by Provider: 10/03/19 15:11 Source: patient, RN notes reviewed Allergies/Adverse Reactions: Patient Allergies Allergy/AdvReac Type Severity Reaction Status Date / Time vancomycin Allergy RASH Verified 05/07/18 17:08 Home Medications: Home Medication List Medication Instructions Recorded Confirmed Last Taken Type Metoprolol Succinate 100 mg PO QHS 05/07/18 09/22/19 09/21/19 History Valacyclovir HCl [Valacyclovir] 500 mg PO QHS 05/07/18 09/22/19 09/21/19 History Gabapentin 100 mg PO BID 09/05/19 09/22/19 09/22/19 History Ibuprofen [Advil] 400 mg PO Q12H PRN PRN 09/05/19 09/22/19 09/22/19 History Morphine Sulfate [Morphine Sulfate 15 mg PO BID 09/05/19 09/22/19 09/05/19 History ER] - History of Present Illness -Gen Adult Nature of Presenting Problems: pt is a 58 yowf c/o pt went to Dr. Diaz for blood and platelet transfusion today and was told to come to er due to H&H 6.7, 20.9. pt last chemo tx was wednesday. pt sts she has hx of htn and multiple myeloma, came to get typed and crossed today. pt also sts she has had fever and vomiting last night. triage note sts pt has had dyspena on ext, sob and productive cough. pt has been on chemo for 6-7 years. no allergies. Location of Pain/Injury: reports: none Pain Radiation: reports: no radiation Quality of Pain: reports: none Severity: reports: mild Onset/Duration: reports: unsure, other (today) Timing: reports: still present Context/Activities at Onset: reports: none Modifying Factors: improves with: nothing Associated Symptoms: reports: cough, fever/chills, shortness of breath, vomiting , other (dyspnea on ext) - Sickle Cell Pain Related Context Sickle Cell Pain Location: denies: none, head, face, mouth, neck, chest, upper extremity, hand(s), abdomen, back, pelvis, genitalia, lower extremity, feet, upper body, lower body, generalized, other Review of Systems - Adult - REVIEW OF SYSTEMS - ADULT Constitutional: reports: see HPI, fever. denies: chills, fatique, night sweats Eyes: reports: no symptoms reported Ears, Nose, Mouth & Throat: reports: no symptoms reported Cardiovascular: reports: no symptoms reported Respiratory: reports: see HPI, cough, dyspnea on exertion, excessive sputum production, shortness of breath. denies: hemoptysis, pleurisy, wheezing Gastrointestinal: reports: see HPI, vomiting. denies: abdominal pain, diarrhea, nausea Genitourinary: reports: no symptoms reported Musculoskeletal: reports: no symptoms reported Integumentary: reports: no symptoms reported Neurological: reports: no symptoms reported Psychiatric: reports: no symptoms reported Endocrine: reports: no symptoms reported Hematologic/Lymphatic: reports: no symptoms reported Allergic/Immunologic: reports: no symptoms reported All Other Systems: Reviewed and Negative Past History - Adult - PAST MEDICAL HISTORY-ADULT Review of Records: reports: Nursing Assessment Review, Medications Reviewed, Social history reviewed & non-contributory. Major Childhood Illnesses: reports: denies history Cardiovascular: reports: HTN Respiratory: reports: denies history Gastrointestinal: reports: denies history Obstetrical/Gynecological: reports: denies history Genitourinary: reports: denies history Musculoskeletal: reports: denies history Neurological: reports: denies history Endocrine/Immune: reports: denies history Other Conditions: reports: other cancer (mult myeloma) - PRIOR SURGERIES/PROCEDURES Surgical/Procedure History: reports: other - PRIOR HOSPITALIZATIONS Prior Hospitalizations: reports: none - IMMUNIZATION STATUS Childhood Immunizations: See Nurse Assessment Flu Vaccine: See Nurse Assessment - FAMILY HISTORY Family History: reviewed, not pertinent - SOCIAL HISTORY Smoking: non-smoker Substance Use: none/never Physical Exam-General - PHYSICAL EXAM-ADULT Initial Vital Signs Reviewed: Yes - CONSTITUTIONAL General Appearance: appears well, alert, no apparent distress. negative: lethargic, slow to respond, obtunded - EYES Eyes: PERRL/EOMI, pink conjunctivae - HEAD, EARS, NOSE, MOUTH & THROAT HENMT: normocephalic/atraumatic, moist mucous membranes - NECK Neck: non-tender, full range of motion, supple, normal inspection - RESPIRATORY Respiratory: chest non-tender, lungs clear, normal breath sounds, no pleuratic chest pain, no respiratory distress, no accessory muscle use. negative: rales, rhonchi, wheezing - CARDIOVASCULAR Cardiovascular: normal peripheral pulses, regular rate, rhythm - GASTROINTESTINAL (ABDOMEN) Abdominal Exam: normal bowel sounds, non tender, soft, no organomegaly, no pulsatile mass. negative: rigid, rebound, tenderness - LYMPHATIC Lymphatic: no adenopathy - MUSCULOSKELETAL Back Exam: normal inspection Extremity: normal range of motion, non-tender, normal inspection Peripheral Pulses: radial (R): 2+, radial (L): 2+ - SKIN Integumentary: normal color, normal turgor, warm/dry - NEUROLOGIC Neurologic: grossly normal, no motor/sensory deficits - PSYCHIATRIC Psych/Mental Status: normal mood/affect, normal thought content, normal thought process, oriented x 3 Progress - PLAN OF CARE/RESULTS Progress/Plan/Lab Results: Vital Signs - 8 hr 10/03/19 14:33 10/03/19 16:31 Temperature 99.7 F H 101.9 F H Pulse Rate 96 H 92 H Respiratory Rate 24 20 Blood Pressure 125/51 119/85 O2 Sat by Pulse Oximetry 100 100 Laboratory Results - last 24 hr 10/03/19 10/03/19 10/03/19 15:08 15:08 15:08 WBC 2.17 L RBC 2.15 L Hgb 6.7 L Hct 21.6 L MCV 100.5 H MCH 31.2 H MCHC 31.0 L RDW Std Deviation 19.7 H Plt Count 7 L* MPV 11.0 H Immature Gran % (Auto) 0.9 H Neut % (Auto) 78.4 H Lymph % (Auto) 9.2 L [place] % (Auto) 11.5 H Eos % (Auto) 0.0 Baso % (Auto) 0.0 Immature Gran # (Auto) 0.02 Neut # (Auto) 1.70 Lymph # (Auto) 0.20 L [place] # (Auto) 0.25 Eos # (Auto) 0.00 Baso # (Auto) 0.00 Segmented Neutrophils 72 Band Neutrophils 4 H Lymphocytes 12 L Monocytes 12 H PT INR PTT (Actin FS) Sodium 139 Potassium 3.5 Chloride 101 Carbon Dioxide 25 Anion Gap 13 BUN 20 Creatinine 1.1 H Estimated GFR/1.73 m2 51 BUN/Creatinine Ratio 18 Glucose 106 H Calculated Osmolality 281 Calcium 8.9 Total Bilirubin 0.39 AST 121 H ALT 14 Alkaline Phosphatase 51 Creatine Kinase 178 H Creatine Kinase Index 0.7 CK-MB (CK-2) 1.31 Troponin T Total Protein 6.8 Albumin 3.4 L Globulin 3.4 Albumin/Globulin Ratio 1.0 Plasma Lactate 1.8 Urine Source 10/03/19 10/03/19 10/03/19 15:08 15:08 18:10 WBC RBC Hgb Hct MCV MCH MCHC RDW Std Deviation Plt Count MPV Immature Gran % (Auto) Neut % (Auto) Lymph % (Auto) [place] % (Auto) Eos % (Auto) Baso % (Auto) Immature Gran # (Auto) Neut # (Auto) Lymph # (Auto) [place] # (Auto) Eos # (Auto) Baso # (Auto) Segmented Neutrophils Band Neutrophils Lymphocytes Monocytes PT 16.5 H INR 1.31 PTT (Actin FS) 45.3 H Sodium Potassium Chloride Carbon Dioxide Anion Gap BUN Creatinine Estimated GFR/1.73 m2 BUN/Creatinine Ratio Glucose Calculated Osmolality Calcium Total Bilirubin AST ALT Alkaline Phosphatase Creatine Kinase Creatine Kinase Index CK-MB (CK-2) Troponin T < 0.010 Total Protein Albumin Globulin Albumin/Globulin Ratio Plasma Lactate Urine Source CLEAN CATCH Orders Category Date Time Status Cardiac Monitoring DIRECTED Care 10/03/19 14:39 Active Notify MD of + Sepsis Screen NOW Care 10/03/19 14:39 Active Notify Physician As Ordered Care 10/03/19 14:39 Active Transfuse .Give-Transfuse Care 10/03/19 18:03 Active Transfuse .Give-Transfuse Care 10/03/19 18:19 Active CHEST-1 VIEW [RAD] Stat Exams 10/03/19 14:39 Completed BLOOD CULTURE [BLDCUL] Stat Lab 10/03/19 15:11 Results CBC WITH DIFF [HEME] Stat Lab 10/03/19 15:08 Completed CK PROFILE [SP CHEM] Stat Lab 10/03/19 15:08 Completed COMPREHENSIVE METABOLIC PANEL [CHEM] Stat Lab 10/03/19 15:08 Completed LACTATE, PLASMA [CHEM] Lab 10/03/19 17:45 Uncollected LACTATE, PLASMA [CHEM] Lab 10/03/19 20:45 Uncollected LACTATE, PLASMA [CHEM] Q3H Lab 10/03/19 15:08 Completed LRPC (RED CELLS) [BBK] Stat Lab 10/03/19 18:04 Uncollected PHERESIS PLATELETS [BBK] Stat Lab 10/03/19 18:19 Uncollected PROTIME WITH INR [COAG] Stat Lab 10/03/19 15:08 Completed PTT [COAG] Stat Lab 10/03/19 15:08 Completed TROPONIN T Stat Lab 10/03/19 15:08 Completed TYPE & SCREEN [BBK] Stat Lab 10/03/19 18:03 Uncollected URINALYSIS W/POSS RFLX CULT [URINALYSIS] Stat Lab 10/03/19 18:10 Results 0.9% Sodium Chloride Inj [Ns] 500 ml Med 10/03/19 18:03 Discontinued IV As Directed mls/hr Diphenhydramine [Benadryl] Med 10/03/19 18:15 Discontinued 25 mg IV NOW ONE Oxygen Device Stat Oth 10/03/19 14:39 Active EKG [EKG] Stat Ther 10/03/19 14:40 Draft Result Diagrams: 10/03/19 15:08 10/03/19 15:08 - EKG 1 Time of EKG reading by physician:: 14:46 EKG Read and Signed by:: Adis Neff EKG Interpretation (*Must complete 3 of following elements*): Abnormal Rate: 94 Rhythm: NSR [place]: normal QRS: normal [place] Interval: normal ST Wave: non-specific ST changes (nonspecific ST abnormality) - CONSULTS/PCP/HOSPITALIST Notification #1 *Consult/PCP/Hospitalist*: Carrie VILLAFANA for hospitalist who will advise night Hospitalist. Time Discussed: 18:39 Consult Disposition: Admit Departure - Departure Date of Disposition Decision: 10/03/19 Time of Disposition Decision: 18:38 DIAGNOSIS: Thrombocytopenia Anemia Qualifiers: Anemia type: unspecified type Qualified Code(s): D64.9 - Anemia, unspecified Disposition: ADMITTED INPATIENT 09 Certified Medical Emergency: Emergent Condition: Stable Referrals and Follow-Ups: John Diaz MD [Primary Care Provider] - - Critical Care Note This patient required my direct & personal management of CC.: No Attestation - Physician/ ZOHRA Attestation Patient care was provided by Advanced Practice Provider:: No The physician spent face to face time with patient:: Yes Advanced Practice Provider documentation review:: Supervising physician onsite and consulted in the evaluation and care of this patient. The physician did have a face to face encounter with the patient. This chart was documented by the indicated scribe, (Idalia Faulkner, Cherrie) and accurately reflects the services I performed and decisions made by me, Adis Neff MD, as attested by the provider's signature.
[2019-10-03] MEDS ORDERED: BENADRYL PO PRN (22:05)
[2019-10-03] MEDS ORDERED: NS 250 ML ONE (23:44)
[2019-10-04] MEDS: ROCEPHIN 1 GM in NS 50 ML IV SCH (02:05)
[2019-10-04] MEDS: TYLENOL PO PRN ×3 (03:50→23:40)
--- NOTE | 2019-10-04 04:16 | HISTORY AND PHYSICAL ---
CHIEF COMPLAINT: Needs blood transfusion. HPI: Ms. Germain is a pleasant 58-year-old female with a known past medical history of multiple myeloma, history of endometrial cancer status post hysterectomy and hypertension. She is followed outpatient by Dr. Diaz. She was supposed to go to outpatient treatment, receive 2 units of platelets and 2 units of packed red blood cells. They did not have a bed. She had called Dr. Diaz to tell him that she was going to wait until tomorrow. He said go ahead and come to the emergency room. She will be admitted for transfusion. PAST MEDICAL HISTORY: See HPI. PREVIOUS SURGICAL HISTORY: Hysterectomy and Port-A-Cath placement. SOCIAL HISTORY: No tobacco, alcohol, or illicit drugs. FAMILY HISTORY: She denies any history of cancer, cardiac disease. ALLERGIES: VANCOMYCIN. HOME MEDICATIONS: A list of home medications has not been placed in the computer. Order was placed for nursing to reconcile home medications. She is taking Levaquin 500 mg daily, which was started yesterday. REVIEW OF SYSTEMS: A 14-point review of systems was conducted with the patient. She stated that she started having a fever and cough last night and started taking the Levaquin this morning. Positive for chills. She denies any nausea, vomiting, hematuria, hematochezia or melena. Other pertinent positives for admission are listed above in the HPI. All other systems were reviewed and found to be negative. PHYSICAL EXAMINATION: VITAL SIGNS: Temperature 98 degrees, pulse 76, respirations 18, blood pressure 116/55, oxygen saturation 99% on room air. GENERAL: Pleasant 58-year-old female lying in the ER stretcher, alert and oriented x3. She answers all questions appropriately. She is accompanied by her . She is in no acute distress. HEENT: Head is atraumatic, normocephalic. Pupils equal, round, react to light. Extraocular eye movements intact. Sclera anicteric. Conjunctiva pale. Oral mucosa is dry. NECK: Supple. No JVD. No thyromegaly. Trachea is midline. No cervical lymphadenopathy. CARDIAC: S1, S2 appreciated. No murmurs, gallops, rubs. LUNGS: Clear to auscultation bilaterally. No rhonchi, wheezes, rales. Symmetric rise and fall of respirations. ABDOMEN: Protuberant, soft, nondistended, nontender. Bowel sounds present all 4 quadrants, normoactive. No pulsatile mass or organomegaly. EXTREMITIES: Trace nonpitting edema bilateral lower extremities. 2+ pedal pulses. No clubbing or cyanosis. GENITOURINARY: No bladder distention. Patient voids. Otherwise deferred. NEUROLOGICAL: Alert and oriented x3. Cranial nerves 2-12 grossly intact. DIAGNOSTIC DATA: Chest x-ray shows a questionable infiltrate in the medial left lower lobe. CT without contrast is pending. LABORATORY DATA: WBC 2.17, hemoglobin 6.7, hematocrit 21.7, platelet count 7. Sodium 139, potassium 4.5, chloride 101, carbon dioxide 25, BUN 20, creatinine 1.1, glucose 106. Urine unremarkable. ASSESSMENT AND PLAN: 1. Pancytopenia with profound thrombocytopenia and anemia. Patient will receive 2 units of packed red blood cells and 2 units of platelets. Recheck laboratory data tomorrow morning. She will be placed on the medical floor in observation status. 2. Questionable community-acquired pneumonia. Patient has started taking Levaquin. Will add Rocephin. Blood cultures are pending. 3. Acute kidney injury. This is secondary to volume depletion. Will recheck labs tomorrow. 4. Multiple myeloma, aware. 5. Further recommendations based on patient's clinical course. Dictated by JUANA Dick for Penny Grande MD cc: JUANA Dick MD Naveen T. Lobo, MD Independent exam and assessment performed at bedside with MOTOR W[employer]ER. Discussed above plan of care with MOTOR W[employer]ER and agree with above. Consider switching Rocephin to Maxipime if clinically indicated in 2 days if no improvement. MTDD
--- NOTE | 2019-10-04 07:11 | Diag Imaging Result Doc PS360 ---
EXAM: CT THORAX W/O CONTRAST 10/03/2019 HISTORY: pna? TECHNIQUE: This exam was performed using automated exposure control, adjustment of mA or kV according to patient size, and/or use of iterative reconstruction technique. COMMENT: There is marked osteopenia of the regional skeleton particularly the thoracic spine. There are lytic changes throughout the thoracic spine consistent with the diagnosis of multiple myeloma. There has been kyphoplasty at T4. There is a Port-A-Cath on the right. These findings were also present on 11/24/2018. There are patchy alveolar opacities present in the left lower lobe particularly in the costophrenic sulcus posteriorly and to a lesser extent in the azygos esophageal recess of the right lower lobe. This is worsened since the previous study. There is a small left pleural fluid collection. There is no evidence of significant adenopathy. IMPRESSION: Lower lobe bronchopneumonia worse on the left than the right. Small left pleural effusion. Diffuse lytic skeletal changes particularly in the thoracic spine. Electronically signed by Spencer Ruffin 10/04/2019 7:09 AM
[2019-10-04 07:41] LABS: CALCIUM 8.7 mg/dL (8.8-10.2); CREATININE 1.1 mg/dL (0.5-0.9); POTASSIUM 3.4 mmol/L (3.5-5.1)
[2019-10-04 07:55] LABS: HEMATOCRIT 22.8 % (37.0-47.0); HEMOGLOBIN 7.5 g/dL (12.0-16.0); IMM GRAN# 0.02 X1000 (0.0-0.04); IMM GRAN% 0.9 % (0.0-0.5); LYMPH# 0.17 X1000 (1.2-3.4); LYMPH% 7.9 % (20.5-51.1); MCH 31.9 PG (27-31); MCHC 32.9 g/dL (33-37); MONO# 0.18 X1000 (0.11-0.59); MONO% 8.4 % (1.7-9.3); MPV 10.1 FL (7.4-10.4); NEUT# 1.77 X1000 (1.4-6.5); NEUT% 82.8 % (42.2-75.2); PLT 54 X1000 (130-400); RBC 2.35 XMIL (4.2-5.4); WBC 2.14 X1000 (4.8-10.8)
[2019-10-04] MEDS: LEVAQUIN PO SCH (08:44)
[2019-10-04] MEDS ORDERED: ZOFRAN IV PRN (11:57)
[2019-10-04] MEDS: MS CONTIN PO SCH ×2 (12:12→20:20)
--- NOTE | 2019-10-04 12:28 | PROGRESS NOTE ---
DATE: 10/04/2019 SUBJECTIVE: Patient reports breathing better. Denies any fever or chills. OBJECTIVE: Vital Signs: Temperature 98.8 degrees, heart rate 74, respiratory rate 16, blood pressure 142/66, O2 saturation 100% on 2 L nasal cannula. General Examination: This is a 58-year- old, female lying in bed, in no acute distress. Cardiovascular Examination: S1 and S2 heard. No murmurs, gallops, or rubs. Regular rate and rhythm. Respiratory Examination: Clear bilaterally to auscultation. No work of breathing or using accessory muscles. Abdomen: Soft. Nontender to palpation. Bowel sounds present. No organomegaly. Extremities: No clubbing, cyanosis, or edema. Peripheral pulses present in both legs. Neurological Examination: The patient is alert and oriented x3. Moves 4 extremities. Laboratory Data: Reviewed. Platelets are 54,000, with hemoglobin 7.5, white cell count 2.14. Potassium 3.4. ASSESSMENT AND PLAN: 1. Left lower lobe bronchopneumonia. Currently, this patient is on ceftriaxone and azithromycin. The patient on 3 L of oxygen by nasal cannula. We will continue with the same antibiotic therapy. We will see if we can wean off of oxygen on this patient. 2. Pancytopenia with profound thrombocytopenia and anemia. The patient received 2 units of red blood cells and 2 units of platelets, and those are better today. We will see how she does tomorrow. 3. Acute kidney injury, resolved, secondary to volume depletion. 4. Multiple myeloma. Aware. 5. Disposition. We will continue to monitor this patient closely. Clinically, this patient looks fine so if this patient is not requiring any oxygen supplementation tomorrow, I think we can discharge her. cc: Joao Galvez MD
[2019-10-04] MEDS: NEURONTIN PO SCH (20:21)
[2019-10-04] MEDS ORDERED: VALTREX PO SCH (21:00)
[2019-10-04] MEDS ORDERED: TOPROL XL PO SCH (21:00)
[2019-10-05] MEDS: ROCEPHIN 1 GM in NS 50 ML IV SCH (03:21)
[2019-10-05 07:29] LABS: HEMATOCRIT 23.7 % (37.0-47.0); HEMOGLOBIN 7.7 g/dL (12.0-16.0); IMM GRAN# 0.06 X1000 (0.0-0.04); LYMPH# 0.14 X1000 (1.2-3.4); LYMPH% 4.8 % (20.5-51.1); MCH 31.7 PG (27-31); MCHC 32.5 g/dL (33-37); MCV 97.5 FL (81-99); MONO# 0.13 X1000 (0.11-0.59); MONO% 4.4 % (1.7-9.3); MPV 10.8 FL (7.4-10.4); NEUT# 2.61 X1000 (1.4-6.5); NEUT% 88.8 % (42.2-75.2); PLT 49 X1000 (130-400); RBC 2.43 XMIL (4.2-5.4); WBC 2.94 X1000 (4.8-10.8)
[2019-10-05 07:40] LABS: AGAP 11; ALBUMIN 3.2 g/dL (3.5-5.0); BUN 14 mg/dL (8-22); CALCIUM 8.9 mg/dL (8.8-10.2); CHLORIDE 103 mmol/L (98-107); COSMO 279; CREATININE 0.8 mg/dL (0.5-0.9); ESTIMATED GFR > 60; GLUCOSE 81 mg/dL (70-104); PHOSPHORUS 2.3 mg/dL (2.7-4.5); POTASSIUM 3.5 mmol/L (3.5-5.1); SODIUM 140 mmol/L (136-145); TCO2 26 mmol/L (25-35)
[2019-10-05 07:49] LABS: EOS 2 % (1-10); LYMPHS 4 % (21-51); MONO 4 % (1-9); SEGS 88 % (42-75)
[2019-10-05 07:55] VITALS: BP 148/62
[2019-10-05] MEDS: MS CONTIN PO SCH (08:56)
[2019-10-05] MEDS: NEURONTIN PO SCH (08:56)
[2019-10-05] MEDS: LEVAQUIN PO SCH (09:11)
--- NOTE | 2019-10-05 11:55 | DISCHARGE SUMMARY ---
ADMISSION DATE: 10/03/2019 DISCHARGE DATE: 10/05/2019 DIAGNOSES: 1. Pancytopenia with profound thrombocytopenia and anemia. 2. Community-acquired pneumonia. 3. Acute kidney injury. resolved. 4. Multiple myeloma. 5. Left lower lobe bronchopneumonia. DIAGNOSTICS: 1. Chest x-ray revealed possible infiltrate or pneumonia in the medial left lower lobe. 2. Chest CT. Left lower lobe bronchopneumonia, worse on the left than the right. Small bilateral pleural effusions. Diffuse lytic skeletal changes, particularly in the thoracic spine. HOSPITAL COURSE: Ms Germain presented to the emergency room needing blood transfusions for profound thrombocytopenia, pancytopenia, and anemia, having platelets of 6000 with a hemoglobin of 6.7 and hematocrit of 20.9. She received 2 units of packed cells and 2 units of platelets. Today her hemoglobin is 7.7, hematocrit 23.7 with platelets of 49,000. She was found to have left lower lobe bronchopneumonia for which she was given Rocephin and azithromycin and will be discharged on Omnicef. She states that she is breathing better. She has no complaints and thankfully she is ready for discharge. She was noted to have a creatinine of 1.1. After hydration, creatinine is 0.8. Of note, blood cultures and urine cultures were obtained and all revealed no growth. DISCHARGE VITAL SIGNS: Blood pressure is 148/62 with heart rate of 68, respirations are 16, temperature is 98.4 degrees oral with room air saturations 96 to 99 percent. DISCHARGE PHYSICAL EXAMINATION: Cardiovascular: Regular rate and rhythm. S1 and S2 appreciated. She has no lower extremity edema. Peripheral pulses are palpable x4 extremities. Pulmonary: Breath sounds are clear. No increased work of breathing noted. Chest rises and falls symmetric with respiration. Gastrointestinal: Abdomen is soft, nontender, nondistended with bowel sounds in all 4 quadrants. Neurologic: She is alert and oriented x3 with cranial nerves 2-12 grossly intact. DISCHARGE MEDICATIONS: 1. Ibuprofen 400 mg q.12 hours p.r.n. 2. Omnicef 300 mg p.o. b.i.d. x14 days. 3. Valacyclovir 500 mg p.o. at bedtime. 4. Morphine ER 15 mg p.o. b.i.d. 5. Metoprolol succinate 100 mg p.o. at bedtime. 6. Gabapentin 100 mg p.o. b.i.d. FOLLOWUP: Dr. John Diaz. She needs to keep her appointment that is scheduled for Wednesday. She has been instructed to call to be seen sooner or return to the emergency room for any syncope, dizziness, chest pain, palpitations, temperature greater than 101 degrees, any shortness of breath, cough, any chills, any nausea, vomiting, diarrhea, constipation, black or bloody vomitus or stools, any hematuria, dysuria, frequency, urgency. DISPOSITION: She is being discharged home in stable condition with family members. TIME SPENT: This is a greater than 30 minute discharge. Dictated by JUANA Wallace for Joao Galvez MD cc: JUANA Wallace MD MTDD
== END 2019-10-05 11:32 | disposition home or self-care (01) ==
LOC: ED 14:16 → 3N 14:16 → SUATTDRO 21:09
PROVIDERS: ATTEND Internal Medicine

== ENCOUNTER 2019-11-08 18:39 | Inpatient (IN) ==
--- NOTE | 2019-11-08 19:26 | Diag Imaging Result Doc PS360 ---
EXAM: CHEST-1 VIEW HISTORY: cough TECHNIQUE: Single view COMPARISON: 10/11/2019 FINDINGS: There is a small to moderate-sized left pleural effusion. This is larger than on the prior exam. There are infiltrates in the lung bases. No cardiomegaly. No change in the right jugular portacatheter. No pneumothorax. IMPRESSION: Basilar infiltrates and atelectasis with a left pleural effusion Electronically signed by Art Duran 11/08/2019 7:24 PM
[2019-11-08] MEDS ORDERED: ZOSYN 3.375 GM in NS 50 ML IV ONE (19:28)
[2019-11-08] MEDS ORDERED: ZYVOX 600 MG/D5W 600 MG/300 ML IVPB IV ONE (19:31)
[2019-11-08] MEDS ORDERED: ZITHROMAX 500 MG/NS 500 MG/250 ML IVPB IV ONE (19:31)
[2019-11-08 20:02] LABS: INR 1.33; PROTIME 16.7 Seconds (11.0-16.0)
[2019-11-08 20:08] LABS: BASO# 0.04 X1000 (0.0-0.2); BASO% 0.9 % (0.0-0.8); HEMATOCRIT 22.3 % (37.0-47.0); HEMOGLOBIN 7.4 g/dL (12.0-16.0); IMM GRAN# 0.18 X1000 (0.0-0.04); IMM GRAN% 4.1 % (0.0-0.5); LYMPH# 0.39 X1000 (1.2-3.4); LYMPH% 8.9 % (20.5-51.1); MCH 31.2 PG (27-31); MCHC 33.2 g/dL (33-37); MCV 94.1 FL (81-99); MONO# 0.34 X1000 (0.11-0.59); MONO% 7.8 % (1.7-9.3); MPV 12.5 FL (7.4-10.4); NEUT# 3.42 X1000 (1.4-6.5); NEUT% 78.3 % (42.2-75.2); PLT 7 X1000 (130-400); RBC 2.37 XMIL (4.2-5.4); RDW 19.9 % (11.5-14.5); WBC 4.37 X1000 (4.8-10.8)
--- NOTE | 2019-11-08 20:32 | PROVIDER DOCUMENTATION ---
This chart was entered by Soni Treviño Scribe, acting as scribe for Dony Albert MD. HPI-General Adult - General Chief Complaint: SEPSIS ALERT - D Stated Complaint: FLU SX Time Seen by Provider: 11/08/19 18:55 Source: patient Allergies/Adverse Reactions: Patient Allergies Allergy/AdvReac Type Severity Reaction Status Date / Time vancomycin Allergy RASH Verified 05/07/18 17:08 Home Medications: Home Medication List Medication Instructions Recorded Confirmed Last Taken Type Valacyclovir HCl [Valacyclovir] 500 mg PO DAILY 05/07/18 11/08/19 10/24/19 History Gabapentin 100 mg PO TID 09/05/19 11/08/19 10/24/19 History Ibuprofen [Advil] 400 mg PO Q12H PRN PRN 09/05/19 11/08/19 10/23/19 History Morphine Sulfate [Morphine Sulfate 60 mg PO BID 09/05/19 11/08/19 10/24/19 History ER] Metoprolol Succinate 100 mg PO HS 10/11/19 11/08/19 10/23/19 History Promethazine [Phenergan] 25 mg PO PRN PRN 10/17/19 11/08/19 Unknown History Venetoclax [Venclexta] 400 mg PO DAILY 11/08/19 11/08/19 Unknown History - History of Present Illness -Gen Adult Nature of Presenting Problems: pt is a 58 yr old female presenting with complaint of weakness, fatigue, cough and chills, pt reports 7yr hx of multiple myeloma, treated with chemo, new pill added 3 days ago. pt denies any fever. Location of Pain/Injury: reports: none Pain Radiation: reports: no radiation Quality of Pain: reports: none Severity: reports: moderate Onset/Duration: reports: this morning Timing: reports: getting worse Context/Activities at Onset: reports: rest Modifying Factors: improves with: nothing Associated Symptoms: reports: cough, fatigue, fever/chills, shortness of breath. denies: back/neck pain, chest pain, EENT symptoms, genitourinary problems, headaches, sinus congestion/drainage Similar Symptoms Previously?: No Recently seen or treated by another doctor?: Yes Review of Systems - Adult - REVIEW OF SYSTEMS - ADULT Constitutional: reports: chills, fatique. denies: fever Eyes: denies: blurred vision, double vision Ears, Nose, Mouth & Throat: denies: ear pain, sinus problem, throat pain Cardiovascular: denies: chest pain, palpitations, syncope Respiratory: reports: cough, dyspnea on exertion, shortness of breath Gastrointestinal: denies: abdominal pain, nausea, vomiting Genitourinary: reports: no symptoms reported Musculoskeletal: reports: muscle weakness Integumentary: reports: no symptoms reported Neurological: denies: dizziness/vertigo, headache/migraines, syncope Psychiatric: reports: no symptoms reported Endocrine: reports: no symptoms reported Hematologic/Lymphatic: reports: no symptoms reported Allergic/Immunologic: reports: no symptoms reported All Other Systems: Reviewed and Negative Past History - Adult - PAST MEDICAL HISTORY-ADULT Review of Records: reports: Old Records Reviewed, Nursing Assessment Review, Medications Reviewed, Social history reviewed & non-contributory. Major Childhood Illnesses: reports: denies history Cardiovascular: reports: HTN Respiratory: reports: denies history Gastrointestinal: reports: denies history Obstetrical/Gynecological: reports: denies history Genitourinary: reports: denies history Musculoskeletal: reports: denies history Neurological: reports: denies history Endocrine/Immune: reports: denies history Other Conditions: reports: other cancer - PRIOR SURGERIES/PROCEDURES Surgical/Procedure History: reports: none - PRIOR HOSPITALIZATIONS Prior Hospitalizations: reports: none - IMMUNIZATION STATUS Childhood Immunizations: See Nurse Assessment Flu Vaccine: See Nurse Assessment - FAMILY HISTORY Family History: reviewed, not pertinent - SOCIAL HISTORY Smoking: non-smoker Substance Use: denies Living Situation: family Physical Exam-General - PHYSICAL EXAM-ADULT Initial Vital Signs Reviewed: Yes - CONSTITUTIONAL General Appearance: obese, other (fatigued) - EYES Eyes: PERRL/EOMI - HEAD, EARS, NOSE, MOUTH & THROAT HENMT: normocephalic/atraumatic, moist mucous membranes, normal ENT inspection - NECK Neck: non-tender, full range of motion, supple, normal inspection - RESPIRATORY Respiratory: chest non-tender, no pleuratic chest pain, crackles, rhonchi, increased rate - CARDIOVASCULAR Cardiovascular: normal peripheral pulses, tachycardia - GASTROINTESTINAL (ABDOMEN) Abdominal Exam: normal bowel sounds, non tender, soft - LYMPHATIC Lymphatic: no adenopathy - MUSCULOSKELETAL Back Exam: normal inspection Extremity: normal range of motion, non-tender, normal inspection - SKIN Integumentary: normal turgor, warm/dry - NEUROLOGIC Neurologic: grossly normal, no motor/sensory deficits - PSYCHIATRIC Psych/Mental Status: normal mood/affect, normal thought content, normal thought process, oriented x 3 Progress - PLAN OF CARE/RESULTS Progress/Plan/Lab Results: Vital Signs - 8 hr 11/08/19 18:52 Temperature 98.1 F Pulse Rate 102 H Respiratory Rate 22 Blood Pressure 126/68 O2 Sat by Pulse Oximetry 92 L Orders Category Date Time Status Cardiac Monitoring DIRECTED Care 11/08/19 18:59 Active IV Insertion ORDERED Care 11/08/19 18:59 Active Notify MD of + Sepsis Screen NOW Care 11/08/19 18:59 Active Notify Physician As Ordered Care 11/08/19 18:59 Active CHEST-1 VIEW [RAD] Stat Exams 11/08/19 18:59 Taken BLOOD CULTURE [BLDCUL] Stat Lab 11/08/19 18:59 Uncollected CBC WITH DIFF [HEME] Stat Lab 11/08/19 18:59 Uncollected CK PROFILE [SP CHEM] Stat Lab 11/08/19 18:59 Uncollected COMPREHENSIVE METABOLIC PANEL [CHEM] Stat Lab 11/08/19 18:59 Uncollected INFLUENZA SCREEN A/B Stat Lab 11/08/19 19:11 Uncollected LACTATE, PLASMA [CHEM] Q3H Lab 11/08/19 19:00 Uncollected LACTATE, PLASMA [CHEM] Q3H Lab 11/08/19 22:00 Uncollected LACTATE, PLASMA [CHEM] Q3H Lab 11/09/19 01:00 Uncollected PROTIME WITH INR [COAG] Stat Lab 11/08/19 18:59 Uncollected PTT [COAG] Stat Lab 11/08/19 18:59 Uncollected TROPONIN T Stat Lab 11/08/19 18:59 Uncollected URINALYSIS W/POSS RFLX CULT [URINALYSIS] Stat Lab 11/08/19 18:59 Uncollected Oxygen Device Stat Oth 11/08/19 18:59 Active Result Diagrams: 11/08/19 19:36 - XRAY 1 XRAY Study: Chest Impression: Abnormal ( Signed EXAM: CHEST-1 VIEW HISTORY: cough TECHNIQUE: Single view COMPARISON: 10/11/2019 FINDINGS: There is a small to moderate-sized left pleural effusion. This is larger than on the prior exam. There are infiltrates in the lung bases. No cardiomegaly. No change in the right jugular portacatheter. No pneumothorax. IMPRESSION: Basilar infiltrates and atelectasis with a left pleural effusion Electronically signed by Art Duran 11/08/2019 7:24 PM 11/08/191923 Interpreting Physician: Art Duran MD Dictated Date/Time: 11/08/191923 cc: James Norton; Danielle Armas MD) Comparison with other Films: changes noted (10/11/19) Departure - Departure Date of Disposition Decision: 11/08/19 Time of Disposition Decision: 20:31 DIAGNOSIS: Thrombocytopenia Pneumonia Qualifiers: Pneumonia type: due to unspecified organism Laterality: bilateral Lung location: lower lobe of lung Qualified Code(s): J18.1 - Lobar pneumonia, unspecified organism Disposition: ADMITTED INPATIENT 09 Certified Medical Emergency: Emergent Condition: Stable Referrals and Follow-Ups: Danielle Armas MD [Primary Care Provider] - - Critical Care Note This patient required my direct & personal management of CC.: No Attestation - Physician/ ZOHRA Attestation Patient care was provided by Advanced Practice Provider:: No The physician spent face to face time with patient:: Yes Advanced Practice Provider documentation review:: Supervising physician onsite and consulted in the evaluation and care of this patient. The physician did have a face to face encounter with the patient. This chart was documented by the indicated scribe, (Soni Treviño Scribe) and accurately reflects the services I performed and decisions made by me, Dony Albert MD, as attested by the provider's signature.
[2019-11-08 20:41] LABS: ALB/GLOB RATIO 0.5; ALBUMIN 3.1 g/dL (3.5-5.0); CALCIUM 8.5 mg/dL (8.8-10.2); CREATININE 5.1 mg/dL (0.5-0.9); POTASSIUM 5.4 mmol/L (3.5-5.1); TOTAL BILIRUBIN 0.49 mg/dL (0.20-1.00)
[2019-11-08 21:35] LABS: URINE SOURCE CATH
[2019-11-08 21:40] LABS: BILIRUBIN URINE SMALL (NEGATIVE); BLOOD URINE LARGE (NEGATIVE); CLARITY CLEAR (CLEAR); COLOR YELLOW; GLUCOSE URINE 100 mg/dL (NEGATIVE); KETONE URINE NEGATIVE (NEGATIVE); LEUKOCYTES URINE NEGATIVE (NEGATIVE); NITRITE URINE NEGATIVE (NEGATIVE); PROTEIN URINE 100 mg/dL (NEGATIVE); SP GRAVITY URINE >= 1.030; UROBILINOGEN URINE 0.2 EU/dL (0.2-1.0)
[2019-11-08 21:45] LABS: URINE BACTERIA 2+ /HFP; URINE CAST NONE SEEN /LPF; URINE CRYSTAL NONE SEEN /HPF; URINE EPITHELIAL CELLS >10 /HPF (<10); URINE RBC <10 /HPF (<10); URINE YEAST NONE SEEN /HPF
[2019-11-08] MEDS ORDERED: TYLENOL PO PRN (23:02)
[2019-11-08] MEDS ORDERED: PHENERGAN PO PRN (23:02)
--- NOTE | 2019-11-08 23:19 | HISTORY AND PHYSICAL ---
PRIMARY CARE PHYSICIAN: CHIEF COMPLAINT: Shortness of breath, confusion and lethargy x2 days. HISTORY OF PRESENTING ILLNESS: A 58-year-old female with a history of multiple myeloma, endometrial cancer, hypertension and chronic pain, who is apparently on high doses of opioids. She was brought to the emergency department due to the patient being confused, drowsy and somnolent. Apparently she was also having some episodes where she was having some apneic spell. She was seen in the ER. She had imaging done which did show the possibility of pneumonia, and due to her presenting symptoms it was thought that she would need admission for further management. At the time of my examination, the patient was able to be aroused. She denied any fever, chills or chest pain, but admitted to not feeling well. PAST MEDICAL HISTORY: Multiple myeloma, endometrial cancer, hypertension. PAST SURGICAL HISTORY: Hysterectomy. She has a port in place. ALLERGIES: Vancomycin. CURRENT MEDICATIONS: Gabapentin 100 mg p.o. t.i.d.; ibuprofen 400 mg p.o. q.12 hours; metoprolol 100 mg p.o. at bedtime; morphine sulfate 60 mg p.o. b.i.d., and she has 30 mg intermittent release p.r.n. for breakthrough pain; promethazine 25 mg p.o. daily; valacyclovir 500 mg p.o. daily; venetoclax 400 mg p.o. daily. SOCIAL HISTORY: No history of smoking, alcohol or illicit drug use. FAMILY HISTORY: No history of coronary disease. REVIEW OF SYSTEMS: Fourteen-point review of systems is as in HPI. Other systems negative. PHYSICAL EXAMINATION: GENERAL: Cooperative, friendly female. She is resting comfortably. Occasionally she becomes drowsy and somnolent but she does respond to questions. VITAL SIGNS: Temperature 98.1 degrees, pulse 85, respirations 13, blood pressure 122/102. HEENT: Atraumatic, normocephalic. Pupils pinpoint. NECK: No masses. CHEST: Clear to auscultation. CARDIOVASCULAR: Regular rate and rhythm. ABDOMEN: Soft. Positive bowel sounds. EXTREMITIES: No edema. NEUROLOGIC: She is arousable and she is oriented x2. GENITOURINARY: No bladder distention. SKIN: Warm. LABORATORY DATA: WBCs 4.37, hemoglobin 7.4, hematocrit 22.3, platelets 7000. Sodium 123, potassium 5.4, chloride 81, CO2 is 15, BUN is 84, creatinine is 5.1, glucose is 160. ASSESSMENT: This is a 58-year-old female with a history of multiple myeloma, endometrial cancer and hypertension, who has chronic pain and on chronic opioid treatment. She had presented to the emergency department due to being altered, drowsy and somnolent. Apparently she was also short of breath. She was seen in the emergency department. She had imaging done which raised suspicion for pneumonia. Due to these presenting symptoms, she will require admission for further management. 1. Altered mental status. 2. Chronic opioid use. 3. Probable pneumonia. 4. Thrombocytopenia. 5. Gpvqs-da-vmgrxzl kidney disease. 6. Hyponatremia. PLAN: 1. We will admit the patient to PVC unit. 2. Continue with neurologic checks. 3. We will hold all of her opioids. 4. We will check blood cultures. Start the patient on IV antibiotics. 5. We will transfuse platelets. 6. We will consult her oncologist. 7. We will continue with IV fluids and monitor her renal function. 8. We will also monitor her sodium levels. 9. Put the patient on DVT prophylaxis with SCDs. 10. Please note that the blood cultures have been checked, and we will start the patient on IV antibiotics. cc: Dakota Isabel MD MTDNoni
[2019-11-08] MEDS ORDERED: NARCAN IV ONE (23:54)
[2019-11-09 00:04] LABS: ALLEN TEST YES; BE -8.2 mmoll (-3.0-3.0); BLOOD TYPE ARTERIAL; HCO3-(ACT) 18.6 mmoll (20.0-26.0); METHB 0.4 % (0.0-1.5); O2(CT) 10.3 mL/dL (15.0-23.0); O2HB 96.8 % (95.0-99.0); PCO2(98.6) 42 mmHg (35-45); PO2(98.6) 104 mmHg (60-100); SAMPLE BLOOD; SAO2 99.4 % (95.0-100.0); THB 7.4 g/dL (11.5-17.4); pH(98.6) 7.25 (7.35-7.45)
[2019-11-09 00:06] LABS: MODALITY CANNULA
[2019-11-09] MEDS: NS 1,000 ML IV SCH ×2 (00:28→12:18)
[2019-11-09] MEDS: MAXIPIME 1 GM in NS 50 ML IV SCH ×2 (00:28→10:16)
[2019-11-09] MEDS ORDERED: NARCAN IV ONE ×2 (04:41→09:43)
[2019-11-09] MEDS ORDERED: NARCAN ONE (04:58)
[2019-11-09] MEDS ORDERED: PHENERGAN PO PRN (05:01)
--- NOTE | 2019-11-09 05:52 | EKG Report ---
Test Performed on : 11/09/2019 00:42:47 AM Test Reason : chest pain Blood Pressure : / mmHG Vent. Rate : 085 BPM Atrial Rate : 085 BPM P-R Int : 172 ms QRS Dur : 080 ms QT Int : 354 ms P-R-T Axes : 056 -05 011 degrees QTc Int : 421 ms Normal sinus rhythm. Junctional ST depression, probably abnormal Abnormal ECG When compared with ECG of 03-OCT-2019 14:46, (Unconfirmed) No significant change was found Confirmed by Alonzo SWAIN, Derek Paul ([id number]) on 11/13/2019 9:24:56 AM
[2019-11-09 06:11] LABS: BASO# 0.02 X1000 (0.0-0.2); BASO% 0.7 % (0.0-0.8); HEMATOCRIT 18.3 % (37.0-47.0); IMM GRAN# 0.46 X1000 (0.0-0.04); LYMPH# 0.24 X1000 (1.2-3.4); LYMPH% 8.3 % (20.5-51.1); MCH 31.3 PG (27-31); MCHC 32.8 g/dL (33-37); MCV 95.3 FL (81-99); MONO# 0.23 X1000 (0.11-0.59); MPV 10.4 FL (7.4-10.4); NEUT# 1.93 X1000 (1.4-6.5); PLT 56 X1000 (130-400); RBC 1.92 XMIL (4.2-5.4); RDW 19.7 % (11.5-14.5); WBC 2.88 X1000 (4.8-10.8)
[2019-11-09 06:47] LABS: CALCIUM 7.8 mg/dL (8.8-10.2); CREATININE 5.4 mg/dL (0.5-0.9); POTASSIUM 5.9 mmol/L (3.5-5.1)
[2019-11-09] MEDS ORDERED: VALTREX PO SCH (09:00)
[2019-11-09] MEDS ORDERED: PATIENT'S OWN MED PO SCH (09:00)
[2019-11-09] MEDS ORDERED: ZYVOX 600 MG/D5W 600 MG/300 ML IVPB IV SCH (10:00)
--- NOTE | 2019-11-09 15:14 | HEMO/ONC CONSULTATION ---
DATE: 11/09/2019 REASON FOR CONSULTATION: This is a known patient of ours for the treatment of multiple myeloma. HISTORY OF PRESENT ILLNESS: The patient was diagnosed with multiple myeloma in 2011. She has been through many regimens, and is currently now at end stage multiple myeloma. We most recently had her on Kyprolis 3 weeks on, and 1 week off. Her last dose was 11/06/2019. On Wednesday, she also began Venclexta at 200 mg. She has taken this for 3 days. On the evening of 11/08, she called our on-call service. Her told me that for the past 24 hours she has had episodes of confusion where she would be confused as to what she was doing and could not quite get her words out. She was extremely weak, but denied any fever. She told him that she did not feel normal or well at all. I suggested to them that they could go to the ER, which they did and they were subsequently admitted. Workup in the ER revealed that the patient had left-sided pneumonia. She also had a platelet count of 7000, hemoglobin and hematocrit of 7.4 and 22.3. Hyponatremia with a sodium count of 123, potassium 5.4, creatinine 5.1, and a calcium of 8.5. The patient was admitted for further management and workup. At the time of her admission, the patient was awake and talking, but admitted to not feeling very well. PAST MEDICAL HISTORY: Multiple myeloma, history of endometrial cancer status post hysterectomy, hypertension, and stem cell transplant x2. PAST SURGICAL HISTORY: Hysterectomy and port placement. SOCIAL HISTORY: The patient denies any smoking, alcohol, or illicit drug use. ALLERGIES: Include vancomycin. HOME MEDICATIONS: 1. Venclexta. 2. Allopurinol. 3. Dexamethasone. 4. Gabapentin. 5. Metoprolol succinate. 6. MS Contin 60 mg. 7. MSIR 30 mg. 8. Phenergan. 9. Valtrex. REVIEW OF SYSTEMS: At the time of my exam, the patient was unarousable. Unable to obtain review of systems. PHYSICAL EXAMINATION: Vital Signs: Temperature 98.8 degrees, pulse rate 95, respiratory rate 20, blood pressure 183/101, and O2 saturation 97% on BiPAP. She does not appear to be in any pain. General: The patient appears in no acute distress. However, she is not responding. HEENT: Sclerae is anicteric. Pupils are fixed and pinpoint. Oral mucosa is dry. Cardiovascular: Normal S1, S2. Heart rate and rhythm slightly tachycardic. Respiratory: Chest is clear to auscultation. Breathing is apneic. Patient takes deep breath, and has approximately 10 second period of apnea. Abdomen: Soft, nontender, and nondistended. Extremities: No edema. She has SCD's on. Neurological: She is not arousable this morning. Skin: Warm, dry, and intact. LABORATORY: WBC 2.88, hemoglobin 6.0, hematocrit 18.3, and platelet count 56,000. ANC 1.93, sodium 124, potassium 5.9, creatinine 5.4, calcium 7.8, and magnesium 2.9. ASSESSMENT AND PLAN: 1. Altered mental status. 2. Chronic opioid use. 3. Pneumonia. 4. Thrombocytopenia. 5. Anemia. 6. Acute kidney injury. 7. Hyponatremia. 8. Hyperkalemia. 9. Hypocalcemia. PLAN: Per the nursing notes, the patient has received Narcan 3 times over the last 24 hours. It does work momentarily, but the patient does subsequently return to an unarousable state. The patient was last seen in the clinic on 11/06/2019. At that time, her creatinine was 0.72. She has had a significant elevation in her creatinine since then. Dr. Diaz has had a long discussion with the patient's . They have decided to proceed with palliative care measures and hospice. Continue comfort measures only. We will discontinue any unnecessary medications, lab draws, or consults. Palliative Care has been consulted. We will continue to monitor the patient. Dictated by JUANA Bryson for John Diaz MD Patient seen and examined. As above. Patients condition from myeloma standpoint is end-stage. She has progressed through multiple lines of chemotherapy. Now she is admitted with acute renal failure and hyperkalemia. Her respiratory status continues to worsen and she is on BiPAP at this time. She is relatively unresponsive. I discussed her prognosis and further management at length with her . Her prognosis which is very poor was discussed. At this point we have decided to seek with palliative/comfort care. We will make her inpatient hospice. John Diaz M.D. cc: John Diaz MD [facility]
[2019-11-09] MEDS ORDERED: MORPHINE IV PRN (16:43)
[2019-11-09] MEDS ORDERED: ATIVAN IV PRN (16:43)
--- NOTE | 2019-11-09 16:56 | PROGRESS NOTE ---
DATE: 11/09/2019 Ms. Germain was admitted with shortness of breath, lethargy x2 days. This is a 58-year-old with a history of multiple myeloma, endometrial cancer, hypertension, chronic pain, who came in with high dose of opioids. She was obtunded and drowsy and somnolent. She has also had some episodes where she has some apnea. She came into the emergency room, thought possibility of pneumonia. They did give her some Narcan, still pretty apneic. She has advanced multiple myeloma with several advancing tumors, and I talked to Dr. Diaz. The family, , would like to keep her comfortable and go for comfort measures, so we will not try to give any more Narcan and will not pursue BiPAP. She has been given Narcan a total of 4 doses over the last 24 hours, works momentarily, but subsequently returns to an unarousable state. Creatinine was 0.72. Significant elevation in creatinine since then. She came in, she appears to be going into acute renal failure. She was diagnosed with multiple myeloma in 2011, has been on many regimens and currently on an end-stage multiple myeloma, most recently had Kyprolis 3 weeks on and 1 week off. Last dose was on 11/06/2019. On Wednesday, she called Dr. Diaz's service and had episodes of confusion and could not quite get her words out, extremely weak. Denied any fever. Workup in the ER, left-sided pneumonia, platelet count of 7000, hemoglobin and hematocrit were 7.4 and 22.3 respectively, hyponatremia with sodium 123, potassium 5.4, creatinine 5.1. She now wants to pursue comfort measures, and we will have hospice talk to her, and hopefully we will get hospice care here. cc: Eldon Sung MD
[2019-11-10 09:56] VITALS: BP 117/53
--- NOTE | 2019-11-17 14:38 | DISCHARGE SUMMARY ---
ADMISSION DATE: 11/08/2019 DISCHARGE DATE: 11/10/2019 HOSPITAL COURSE: This is a patient who presented to the hospital on 11/08/2019. She is a patient of Dr. Martel. Came in with shortness of breath, confusion, lethargy for 2 days. This is a 58- year-old female with history of end-stage multiple myeloma, endometrial cancer, hypertension, chronic pain, had high dose of opioids at home, and she was more confused and drowsy. Good amount of pain. She has had marked increase in her disease, especially solid tumor from the multiple myeloma and Dr. Diaz. After discussions with family, she wanted to be made hospice care, comfort measures only. There is no further treatment that could be offered, and so was put on hospice care--I believe that was 11/13/2019 and discharged from the medical service. cc: Eldon Sung MD
== END 2019-11-10 09:32 | disposition hospice, inpatient (51) | DRG 194 ==
LOC: ED 18:39 → SUATTDRO 22:12 → 1N 22:12 → 2N 11-09 00:32
PROVIDERS: ATTEND Emergency Medicine

== ENCOUNTER 2019-11-10 12:16 | Inpatient (IN) ==
[2019-11-10] MEDS ORDERED: TYLENOL PR PRN (14:57)
[2019-11-10] MEDS ORDERED: HALDOL IV PRN (14:59)
[2019-11-10] MEDS ORDERED: LEVSIN-SL SL PRN (15:00)
--- NOTE | 2019-11-10 18:18 | HEMO/ONC PROGRESS NOTE ---
DATE: 11/10/2019 SUBJECTIVE: The patient remains on BiPAP at this time. She remains asleep and unarousable. Her pupils remain pinpoint and nonreactive. Her sister is at bedside. She has 4 children, of whom are all attempting to all get there, including [address] back from [place]. The remains at her bedside. The patient has not really come around acknowledge anyone. She seems in no acute distress. VITAL SIGNS: Temperature 99.3 degrees, pulse rate 104, blood pressure 116/60, O2 saturation 95% on BiPAP. She is in 0/10 pain. PHYSICAL EXAMINATION: General: She is a bit sedated, in no acute distress. HEENT: Pupils are PERRLA and pinpoint. Sclerae anicteric. Cardiovascular: Normal S1, S2. Heart rate and rhythm tachycardic. Respiratory: Chest is clear to auscultation. Breath sounds are difficult to hear over BiPAP. The patient still remains to have some apneic breaths. Abdomen: Soft, nontender, nondistended. Extremities: Have massage devices on them. No edema is notable. Neurological: The patient is not arousable. ASSESSMENT AND PLAN: 1. Altered mental status. 2. Opioid use for cancer pain. 3. Pneumonia. 4. Thrombocytopenia. 5. Anemia. 6. Acute kidney injury. 7. Hyponatremia. 8. Hyperkalemia. 9. Hypocalcemia. 10. End-stage multiple myeloma. PLAN: The patient has been moved to inpatient hospice. The family is by her side. Her prognosis is very poor. She is to remain on BiPAP until her family is able to be at her bedside. At this time they have chosen to seek palliative and comfort care. She appears comfortable at this time. We will continue to monitor. Please call us if needed over the weekend. Dictated by JUANA Bryson for John Diaz MD cc: John Diaz MD [facility]
[2019-11-10 20:07] VITALS: BP 84/52
--- NOTE | 2019-11-30 17:28 | DISCHARGE SUMMARY ---
ADMISSION DATE: 11/10/2019 DISCHARGE DATE: 11/10/2019 FINAL DIAGNOSIS: Multiple myeloma. SUMMARY: This was a known patient of ours, who we have been treating in the office with multiple myeloma since 2011. She has progressed through many regimens and was at end- stage multiple myeloma. On the evening of 11/08/2019, she began having episodes of confusion and became extremely weak. She was admitted to the ER with left-sided pneumonia and a low platelet count of 7000, severely anemic, hyponatremic, and an elevated creatinine. Over the next few days, the patient's condition deteriorated. She became unarousable and developed acute renal failure with hyperkalemia. Respiratory status continued to worsen. She was placed on BiPAP and she was placed on palliative and comfort measures only with inpatient hospice. The patient's family came to be with her. It was noted at approximately 8:00 that evening, the patient's blood pressure was 80/44. Her heart rate was getting slower. The patient remained unresponsive. By 8:45 pm, central monitoring noted that the patient's heart rate was rapidly decreasing. Two nurses assessed the patient and found that her pupils were fixed and nonreactive. She was apneic and a pulse could not be detected through auscultation or palpation. The patient was pronounced at 2245. I was paged at 23:37 by Lizzette to inform me of the patient's . [facility] came to retrieve the body early the next morning. Dictated by JUAAN Bryson for John Diaz MD cc: John Diaz MD MTDD
== END 2019-11-10 22:45 | disposition expired | DRG 840 ==
LOC: 2N 12:16
PROVIDERS: ADMIT Internal Medicine Medical Oncology; ATTEND Internal Medicine Medical Oncology